=== PATIENT | female | born 1965 | race American Indian/Alaskan Native ===

== ENCOUNTER 2016-07-30 15:50 | Emergency (ER) | payer OTHER ==
--- NOTE | 2016-07-30 16:07 | PDOC ---
History of Present Illness - General History Source: Patient, Old Records Exam Limitations: No Limitations - History of Present Illness Initial Comments: 07/30/16 16:52 The patient is a 50 year old female with a significant past medical history of recurrent left chest and arm pain (normal cardiac catheterization 3 years ago), who present to the emergency with chest pain, high blood pressure (baseline 100/ 60 today at work was 140/90), and blurred vision. The patient notes that she has had this chest pain in the past which led to her cardiac catheterization. The patient stated that she was at work today when during onset of symptoms. The patient describes her pain as achy and sharp, she states that her pain begins in her left upper neck and radiates down to the left elbow, occasionally extending through the hand. The patient notes she is experiencing associated lightheadedness, shakes. The patient presents for further evaluation and treatment. <Michel Boss - Last Filed: 07/30/16 17:35> <Harris Wu - Last Filed: 07/30/16 17:55> - General Chief Complaint: Blood Pressure Problem Stated Complaint: HIGH BLOOD PRESSURE Time Seen by Provider: 07/30/16 16:05 Past History <Michel Boss - Last Filed: 07/30/16 17:35> - Past Medical History Suicide Attempt (Hx): No - Psycho/Social/Smoking Cessation Hx Anxiety: No Suicidal Ideation: No Smoking History: Never smoked Have you smoked in the past 12 months: No Hx Alcohol Use: No Drug/Substance Use Hx: No Substance Use Type: None <Harris Wu - Last Filed: 07/30/16 17:55> - Past Medical History Allergies/Adverse Reactions: Allergies Allergy/AdvReac Type Severity Reaction Status Date / Time No Known Allergies Allergy Verified 01/10/16 12:36 Home Medications: Ambulatory Orders NK [No Known Home Medication] 07/30/16 Review of Systems - Review of Systems Able to Perform ROS?: Yes Comments:: 07/30/16 16:59 CONSTITUTIONAL: Absent: Fever, Chills, Diaphoresis, Generalized Weakness, Malaise, Loss of Appetite HEENT: Present: Blurred vision Absent: Rhinorrhea, Nasal Congestion, Throat Pain, Throat Swelling, Difficulty Swallowing, Mouth Swelling, Ear Pain. CARDIOVASCULAR: Present: Chest Pain Absent: Syncope, Palpitations, Irregular Heart Rate, Lightheadedness, Peripheral Edema RESPIRATORY: Absent: Cough, Shortness of Breath, SOB with Exertion, Orthopnea, Wheezing, Stridor, Hemoptysis GASTROINTESTINAL: Absent: Abdominal pain, Abdominal Distension, Nausea, Vomiting, Diarrhea, Constipation, Melena, Hematochezia GENITOURINARY: Absent: Dysuria, Frequency, Urgency, Hesitancy, Flank Pain, Genital Pain MUSCULOSKELETAL: Present: Neck pain. Absent: Arthralgia, Joint Swelling, Back pain SKIN: Absent: Rash, Itching, Pallor HEMATOLOGIC/IMMUNOLOGIC: Absent: Easy Bleeding, Easy Bruising, Lymphadenopathy, Frequent infections ENDOCRINE: Absent: Unexplained Weight Gain, Unexplained Weight Loss, Heat Intolerance, Cold Intolerance NEUROLOGIC: Present: Head Pressure, Lightheadedness Absent: Focal Weakness, Paresthesias, Vertigo, Unsteady Gait, Seizure, Mental Status Changes, Incontinence PSYCHIATRIC: Absent: Anxiety, Depression <Michel Boss - Last Filed: 07/30/16 17:35> *Physical Exam - Physical Exam Comments: 07/30/16 17:36 GENERAL: The patient is awake, alert, and fully oriented, in no acute distress. HEAD: Normal with no signs of trauma. EYES: Pupils equal, round and reactive to light, extraocular movements intact, sclera anicteric, conjunctiva clear. 20/30 visual acuity bilaterally eyes without glasses ENT: Ears normal, nares patent, oropharynx clear without exudates. Moist mucous membranes. NECK: Normal range of motion, supple without lymphadenopathy, JVD, or masses. LUNGS: Breath sounds equal, clear to auscultation bilaterally. No wheezes, and no crackles. HEART: Regular rate and rhythm, normal S1 and S2 without murmur, rub or gallop. ABDOMEN: Soft, nontender, normoactive bowel sounds. No guarding, no rebound. No masses. EXTREMITIES: Normal range of motion, no edema. No clubbing or cyanosis. No cords , erythema, or tenderness. PSYCH: Normal mood, normal affect. SKIN: Warm, Dry, normal turgor, no rashes or lesions noted. NEURO: Mental status: The patient is oriented x3. Cranial nerves: Cranial nerves II through XII are intact Motor: The upper extremities are 5 over 5 in all muscle groups. The lower extremities are 5 over 5 in all muscle groups. Sensation: Sensation is intact to light touch throughout. Cerebellar: Xcasho-radxip-agjs is normal in both upper extremities. Heel-knee- walton is normal in both lower extremities. Reflexes: 2+ and symmetric in the upper and lower extremities. Gait: Normal. Heel and toe walking are normal. Tandem gait is normal. <Michel Boss - Last Filed: 07/30/16 17:35> Heart Score/ECG Review - ECG Impressions Comment:: 07/30/16 17:19 Twelve-lead EKG was performed and reviewed by me. There is [normal sinus rhythm ] at a rate of [73] beats per minute. The axis is [normal]. The intervals are normal. There are no abnormal Q waves. There are no abnormal ST elevations or depressions. There are no significant T wave abnormalities. Impression: Normal twelve-lead EKG. <Michel Boss - Last Filed: 07/30/16 17:35> - History History: Slightly suspicious - Electrocardiogram EKG: Normal - Age Age: 45-65 - Risk Factors Risk Factors Heart Score: Yes Hx Hypertension, Yes Positive family hx of cardiac disease Based on the list above the patient has:: 1-2 risk factors - Troponin Troponin: </= normal limit - Score Heart Score - Total: 2 (low risk) <Harris Wu - Last Filed: 07/30/16 17:55> ED Treatment Course - LABORATORY CBC & Chemistry Diagram: 07/30/16 16:55 07/30/16 16:55 <Michel Boss - Last Filed: 07/30/16 17:35> - LABORATORY CBC & Chemistry Diagram: 07/30/16 16:55 07/30/16 16:55 <Harris Wu - Last Filed: 07/30/16 17:55> Medical Decision Making - Medical Decision Making 07/30/16 17:47 Patient is a 50-year-old woman who presents with nonspecific symptoms today. She has a prior history of hypertension and a family history of heart disease. She was at work today and she states her vision felt slightly blurry. She had no associated symptoms of dizziness, unsteadiness, difficulty speaking or swallowing, double vision, or any other neurological symptoms. She became a little bit concerned and went to the nurse who noted that her blood pressure was elevated to 140/90 when it normally runs 100/60. She also noted some chest discomfort. Of note, she has a history of recurrent chest discomfort over the last several years. She underwent cardiac catheterization 2 years ago which was unremarkable. She was not started on aspirin or any other medications. Her chest pain today is similar to the previous chest pains she's been having intermittently over the last several years. It is sharp, on the left side, intermittent, and it goes down the arm. The physical examination was normal, including a detailed neurological examination. The EKG was normal. The heart risk score puts the patient in the low risk category. Impression: Nonspecific chest pain and vague visual change. No signs of stroke. No signs of acute coronary syndrome given normal EKG and enzymes and low heart risk score. Patient advised to follow-up with her primary care physician in a timely fashion. A copy of labs and EKG given to the patient for follow-up. The scribe's documentation has been prepared under my direction and personally reviewed by me in its entirety. I have confirmed that the note above accurately reflects all work, treatment, procedures, and medical decision- making performed by me. <Harris Wu - Last Filed: 07/30/16 17:55> *DC/Admit/Observation/Transfer - Attestations Scribe Attestion: 07/30/16 17:01 Documentation prepared by Michel Boss, acting as medical radiation tech for Harris Wu MD. <Michel Boss - Last Filed: 07/30/16 17:35> - Discharge Dispostion Admit: No <Harris Wu - Last Filed: 07/30/16 17:55> Diagnosis at time of Disposition: Blurry vision, bilateral - Discharge Dispostion Disposition: HOME Condition at time of disposition: Improved - Referrals Referrals: Matt Carroll MD [Staff Physician] - - Patient Instructions Additional Instructions: Today you were evaluated for some blurry vision and some chest discomfort. The physical examination and laboratory tests along with the EKG were all normal. It is advised that you follow up in a timely fashion with your primary care physician and bring a copy of your results with you to your appointment. Should you develop severe or progressive symptoms, it is advised that you return to the emergency department.
[2016-07-30 17:10] VITALS: BP 99/55; PULSE 72; TEMP 97.9; BMI 31.9
[2016-07-30 17:17] LABS: BASOPHIL 0.7 % (0-2.0); EOSINOPHIL 5.7 % (0-4.5); MCH 23.7 pg (25.7-33.7); MCHC 32.2 g/dl (32.0-36.0); MEAN CELL VOLUME 73.6 fl (80-96); MEAN PLT VOLUME 8.4 fl (7.5-11.1); NEUTROPHILS 58.2 % (42.8-82.8); PLATELET COUNT 250 K/MM3 (134-434); RDW 13.2 % (11.6-15.6); WHITE BLOOD COUNT 8.4 K/mm3 (4.0-10.0)
[2016-07-30 17:30] LABS: ALBUMIN 3.8 g/dl (3.5-5.0); ALK PHOS 71 U/L (32-92); ANION GAP 8 (8-16); BILIRUBIN,TOTAL 0.4 mg/dl (0.2-1.0); CO2 29 mmol/L (22-28); CPK(DFH) 108 IU/L (26-140); CREATININE 0.7 mg/dl (0.6-1.3); GLUCOSE,RANDOM 100 mg/dl (74-106); SGOT/AST 25 U/L (10-42); SGPT/ALT 20 U/L (10-40); TOT PROT 6.6 g/dl (6.4-8.3)
[2016-07-30 17:36] LABS: TROPONIN I (DFP) < 0.03 ng/ml (0.03-0.50)
--- NOTE | 2016-07-31 16:23 | EKG ---
Test Reason : Blood Pressure : / mmHG Vent. Rate : 076 BPM Atrial Rate : 076 BPM P-R Int : 136 ms QRS Dur : 084 ms QT Int : 384 ms P-R-T Axes : 072 059 033 degrees QTc Int : 432 ms NORMAL SINUS RHYTHM CANNOT RULE OUT ANTERIOR INFARCT , AGE UNDETERMINED ABNORMAL ECG NO PREVIOUS ECGS AVAILABLE Confirmed by ERASMO BRADEN MD ([id number]) on 07/31/2016 4:22:39 PM Referred By: MD TOLEDO Confirmed By:ERASMO BRADEN MD
== END 2016-07-30 17:59 | disposition home or self-care (01) ==
LOC: FER 15:50
DX: H53.8 Other visual disturbances (principal)
CPT/HCPCS: 36415; 80053; 82550; 84484; 85025; 93005; 99283-25

== ENCOUNTER 2016-09-18 15:55 | Emergency (ER) | payer OTHER ==
--- NOTE | 2016-09-18 15:59 | PDOC ---
History of Present Illness <Jayy Diaz - Last Filed: 09/18/16 16:15> - General History Source: Patient Exam Limitations: No Limitations - History of Present Illness Initial Comments: 09/18/16 16:19 The patient is a 51 year old female with no significant past medical history, presenting to the Emergency Department with left eye swelling and pain since Tuesday. She reports that on Tuesday she noticed some swelling and discomfort at her upper left eyelid and assumed she had a stye. She states that she had her eye examined by her friend who stretched her eyelid, causing pain. She admits that since then her eye has become more painful and more swollen. She also admits to some discharge in the eye and crusting around the eye in the morning. She denies any visual changes. The patient denies blurry vision, or double vision. Patient denies nausea, vomiting, and diarrhea. Patient denies headache, or dizziness. <Jenny Crespo - Last Filed: 09/18/16 16:22> - General Chief Complaint: Eye Problem Stated Complaint: LEFT EYE SWELLING Time Seen by Provider: 09/18/16 15:58 Past History - Past Medical History HTN: Yes Suicide Attempt (Hx): No - Psycho/Social/Smoking Cessation Hx Anxiety: No Suicidal Ideation: No Smoking History: Never smoked Have you smoked in the past 12 months: No Hx Alcohol Use: No Drug/Substance Use Hx: No Substance Use Type: None <Jayy Diaz - Last Filed: 09/18/16 16:15> <Jenny Crespo - Last Filed: 09/18/16 16:22> - Past Medical History Allergies/Adverse Reactions: Allergies Allergy/AdvReac Type Severity Reaction Status Date / Time No Known Allergies Allergy Verified 01/10/16 12:36 Home Medications: Ambulatory Orders Cephalexin Monohydrate [Keflex] 500 mg PO Q8H #21 capsule 09/18/16 Review of Systems - Review of Systems Able to Perform ROS?: Yes Comments:: 09/18/16 16:19 CONSTITUTIONAL: Absent: fever, no chills, no fatigue EYES: Present: + left eyelid swelling and pain Absent: visual changes ENT: Absent: ear pain, no sore throat CARDIOVASCULAR: Absent: chest pain, no palpitations MUSCULOSKELETAL: Absent: back pain, no arthralgia, no myalgia SKIN: Absent: rash <Jenny Crespo - Last Filed: 09/18/16 16:22> *Physical Exam - Vital Signs Last Vital Signs Temp Pulse Resp BP Pulse Ox 98.6 F 86 18 126/72 99 09/18/16 15:55 09/18/16 15:55 09/18/16 15:55 09/18/16 15:55 09/18/16 15:55 - Physical Exam Comments: 09/18/16 16:20 GENERAL: Well-appearing, well-nourished. No apparent distress. HEENT: Swelling to the left upper eyelid, proximal to the eyelash, slight erythema warmth and tenderness. Mild left periorbital edema. Normocephalic, atraumatic. PERRL, EOM intact. No pain with extraocular movements. CARDIOVASCULAR: Normal S1, S2. Regular rate and rhythm. EXTREMITIES: Normal ROM in all four extremities. No gross deformities. SKIN: Swelling and warmth to left upper eyelid. Warm, dry. No rash NEUROLOGICAL: No focal neurological deficits. <Jenny Crespo - Last Filed: 09/18/16 16:22> Medical Decision Making - Medical Decision Making 09/18/16 16:16 The patient is well-appearing and in no acute distress There is evidence of hordeolum with mild/early surrounding cellulitis There is no evidence of orbital cellulitis Clinical impression: Hordeolum Mild/early preseptal cellulitis I discussed the physical exam findings, ancillary test results and final diagnoses with the patient. I answered all of the patient's questions. The patient was satisfied with the care received and felt comfortable with the discharge plan and treatment plan. The patient will call their primary care physician within 24 hours to arrange follow-up and will return to the Emergency Department with any new, persistent or worsening symptoms. A portion of this note was documented by scribe services under my direction. I have reviewed the details of the note, within reason, and agree with the documentation with the following case summary and management plan written by me. <Jayy Diaz - Last Filed: 09/18/16 16:15> *DC/Admit/Observation/Transfer <Jayy Diaz - Last Filed: 09/18/16 16:15> - Attestations Scribe Attestion: 09/18/16 16:22 Documentation prepared by Jenny Crespo, acting as biomedical engineering director for Jayy Diaz MD. <Jenny Crespo - Last Filed: 09/18/16 16:22> Diagnosis at time of Disposition: Hordeolum externum left upper eyelid, Cellulitis, face - Discharge Dispostion Disposition: HOME Condition at time of disposition: Improved - Prescriptions Prescriptions: Cephalexin Monohydrate [Keflex] 500 mg PO Q8H #21 capsule - Patient Instructions Printed Discharge Instructions: DI for Hordeolum, DI for Cellulitis -- Adult Additional Instructions: Return to the emergency department immediately with ANY new, persistent or worsening symptoms. You MUST call and follow up with your doctor tomorrow. Please make sure your doctor reviews the results of your emergency department evaluation. Take the antibiotics we prescribed. Apply warm compresses to your closed left eye, for 15 minutes, 5 times per day, for one week. - Post Discharge Activity Work/School Note: Back to Work
[2016-09-18 16:02] VITALS: BP 126/72; PULSE 86; TEMP 98.6; BMI 30.9
--- NOTE | 2016-09-18 19:38 | PDOC ---
*Physical Exam - Vital Signs Last Vital Signs Temp Pulse Resp BP Pulse Ox 98.6 F 86 18 126/72 99 09/18/16 15:55 09/18/16 15:55 09/18/16 15:55 09/18/16 15:55 09/18/16 15:55 *DC/Admit/Observation/Transfer Diagnosis at time of Disposition: Hordeolum externum left upper eyelid, Cellulitis, face - Discharge Dispostion Disposition: HOME Condition at time of disposition: Improved - Prescriptions Prescriptions: Cephalexin Monohydrate [Keflex] 500 mg PO Q8H #21 capsule - Referrals - Patient Instructions Printed Discharge Instructions: DI for Cellulitis -- Adult, DI for Hordeolum Additional Instructions: Return to the emergency department immediately with ANY new, persistent or worsening symptoms. You MUST call and follow up with your doctor tomorrow. Please make sure your doctor reviews the results of your emergency department evaluation. Take the antibiotics we prescribed. Apply warm compresses to your closed left eye, for 15 minutes, 5 times per day, for one week. - Post Discharge Activity Work/School Note: Back to Work
== END 2016-09-18 17:04 | disposition home or self-care (01) ==
LOC: FER 15:55
DX: H00.014 Hordeolum externum left upper eyelid (principal); L03.211 Cellulitis of face; I10 Essential (primary) hypertension
CPT/HCPCS: 99283-25

== ENCOUNTER 2016-10-25 17:14 | Observation (INO) | payer OTHER ==
[2016-10-25 17:20] VITALS: BMI 31.7
[2016-10-25] MEDS ORDERED: NITROGLYCERIN SUBLINGUAL 1/150 0.4 MG TAB SL ONE (17:39)
[2016-10-25] MEDS ORDERED: ASPIRIN 81 MG CHEWABLE TABLETS PO ONE (17:39)
--- NOTE | 2016-10-25 17:43 | PDOC ---
History of Present Illness - General History Source: Patient Exam Limitations: No Limitations - History of Present Illness Initial Comments: 10/25/16 17:49 The patient is a 51 year old female with no significant past medical history, who presents to the ED with sharp constant chest pain radiating to her left neck and left arm. Patient states the pain began at 1 PM, and is now worsening. Patient describes the pain as 8/10 in severity. Patient denies taking any medication to alleviate her pain. Patient states she is concerned due to family cardiac issues. Her two brothers had heart attacks in the recent past. She states she had a negative stress test done last year. She denies SOB, fever, chills, nausea, vomiting, diarrhea. She denies recent travels, sick contacts. <Clarence Davis - Last Filed: 10/25/16 17:49> - General History Source: Patient Exam Limitations: No Limitations <Evangelista Le - Last Filed: 10/25/16 18:52> - General Chief Complaint: Chest Pain Stated Complaint: chest pain Time Seen by Provider: 10/25/16 17:19 Past History <Clarence Davis - Last Filed: 10/25/16 17:49> - Past Medical History HTN: Yes Suicide Attempt (Hx): No Other medical history: pt denies - Psycho/Social/Smoking Cessation Hx Anxiety: No Suicidal Ideation: No Smoking History: Never smoked Have you smoked in the past 12 months: No Information on smoking cessation initiated: No Hx Alcohol Use: No Drug/Substance Use Hx: No Substance Use Type: None <Evangelista Le - Last Filed: 10/25/16 18:52> - Past Medical History Allergies/Adverse Reactions: Allergies Allergy/AdvReac Type Severity Reaction Status Date / Time No Known Allergies Allergy Verified 10/25/16 17:17 Home Medications: Ambulatory Orders NK [No Known Home Medication] 10/25/16 Review of Systems - Review of Systems Able to Perform ROS?: Yes Comments:: 10/25/16 17:49 GENERAL/CONSTITUTIONAL: No fever or chills. No weakness. HEAD, EYES, EARS, NOSE AND THROAT: No change in vision. No ear pain or discharge. No sore throat. CARDIOVASCULAR: + left sided chest pain radiating to the left arm and left side of neck. No shortness of breath. RESPIRATORY: No cough, wheezing, or hemoptysis. GASTROINTESTINAL: No nausea, vomiting, diarrhea or constipation. GENITOURINARY: No dysuria, frequency, or change in urination. MUSCULOSKELETAL: No joint or muscle swelling or pain. No neck or back pain. SKIN: No rash NEUROLOGIC: No headache, vertigo, loss of consciousness, or change in strength/ sensation. ENDOCRINE: No increased thirst. No abnormal weight change. HEMATOLOGIC/LYMPHATIC: No anemia, easy bleeding, or history of blood clots. ALLERGIC/IMMUNOLOGIC: No hives or skin allergy. <Clarence Davis - Last Filed: 10/25/16 17:49> *Physical Exam - Vital Signs Last Vital Signs Temp Pulse Resp BP Pulse Ox 98 F 98 H 18 132/74 100 10/25/16 17:15 10/25/16 17:15 10/25/16 17:15 10/25/16 17:15 10/25/16 17:15 - Physical Exam Comments: 10/25/16 17:50 GENERAL: Awake, alert, and fully oriented, in no acute distress HEAD: No signs of trauma EYES: PERRLA, EOMI, sclera anicteric, conjunctiva clear ENT: Auricles normal inspection, hearing grossly normal, nares patent, oropharynx clear without exudates. Moist mucosa NECK: Normal ROM, supple, no lymphadenopathy, JVD, or masses LUNGS: Breath sounds equal, clear to auscultation bilaterally. No wheezes, and no crackles HEART: Regular rate and rhythm, normal S1 and S2, no murmurs, rubs or gallops ABDOMEN: Soft, nontender, normoactive bowel sounds. No guarding, no rebound. No masses EXTREMITIES: Normal range of motion, no edema. No clubbing or cyanosis. No cords, erythema, or tenderness NEUROLOGICAL: Cranial nerves II through XII grossly intact. Normal speech, normal gait SKIN: Warm, Dry, normal turgor, no rashes or lesions noted. <Clarence Davis - Last Filed: 10/25/16 17:49> - Vital Signs Last Vital Signs Temp Pulse Resp BP Pulse Ox 98 F 98 H 18 132/74 100 10/25/16 17:15 10/25/16 17:15 10/25/16 17:15 10/25/16 17:15 10/25/16 17:15 <Park,Evangelista - Last Filed: 10/25/16 18:52> Heart Score/ECG Review - History History: Slightly suspicious - Electrocardiogram EKG: Normal - Age Age: 45-65 - Risk Factors Risk Factors Heart Score: Yes Positive family hx of cardiac disease Based on the list above the patient has:: 1-2 risk factors - Troponin Troponin: </= normal limit - Score Heart Score - Total: 2 #1 ECG reviewed & interpreted by me at: 17:30 10/25/16 17:43 A portion of this note was documented by scribe services under my direction. I have reviewed the details of the note, within reason, and agree with the documentation with the following case summary and management plan written by me. Patient treated in the ED. Nursing notes are reviewed and incorporated into the medical decision-making. Vital signs reviewed. Peripheral IV access obtained by the nurse, laboratory studies are drawn and sent, reviewed and interpreted by myself. Vital Signs Temp Pulse Resp BP Pulse Ox 98 F 98 H 18 132/74 100 10/25/16 17:15 10/25/16 17:15 10/25/16 17:15 10/25/16 17:15 10/25/16 17:15 NSR 87, no std/isidra, TWI III, normal axis, normal intervals, QTC 423 msec <Evangelista Le - Last Filed: 10/25/16 18:52> ED Treatment Course - LABORATORY CBC & Chemistry Diagram: 10/25/16 17:55 10/25/16 17:55 <Evangelista Le - Last Filed: 10/25/16 18:52> Medical Decision Making - Medical Decision Making 10/25/16 18:50 A portion of this note was documented by scribe services under my direction. I have reviewed the details of the note, within reason, and agree with the documentation with the following case summary and management plan written by me. Patient treated in the ED. Nursing notes are reviewed and incorporated into the medical decision-making. Vital signs reviewed. Peripheral IV access obtained by the nurse, laboratory studies are drawn and sent, reviewed and interpreted by myself. 51-year-old female with no past medical history presents with sharp chest pain radiating to her left neck and left arm. Patient reports that the symptoms occurred at 1 PM when she was showering. She had noted that her symptoms were worsening and were initially intermittent now persistent. She denies shortness of breath. States she is not taking any medications. Patient states that she had an unusual type of chest pain presentation that was electric in nature where she was admitted 3 years ago that led to a cardiac catheterization. That was negative. The patient is concerned because she has strong family history of myocardial infarctions. Both her brothers had MIs. One brother was in her 40s and the other brother was in the 50s. Given the symptoms and family history, we'll need to rule out CO. We'll trial aspirin and nitroglycerin. Chest x-ray, labs including troponin. We'll need to consider possible admission for CO workup. 10/25/16 18:50 Pt's chest pain improved with 8 to 2 with nitroglycerin. CBC, BMP 10/25/16 17:55 04 17:55 CMP Sodium 137 mmol/L (136-145) 10/25/16 17:55 Potassium 3.6 mmol/L (3.5-5.1) 10/25/16 17:55 Chloride 103 mmol/L (98-107) 10/25/16 17:55 Carbon Dioxide 28 mmol/L (22-28) 10/25/16 17:55 Anion Gap 6 (8-16) L 10/25/16 17:55 BUN 14 mg/dl (7-18) D 10/25/16 17:55 Creatinine 0.9 mg/dl (0.6-1.3) D 10/25/16 17:55 Creat Clearance w eGFR > 60 (>60) 10/25/16 17:55 Random Glucose 120 mg/dl (74-106) H 10/25/16 17:55 Calcium 8.7 mg/dl (8.4-10.2) 10/25/16 17:55 Total Bilirubin < 0.3 mg/dl (0.2-1.0) D 10/25/16 17:55 AST 20 U/L (10-42) 10/25/16 17:55 ALT 19 U/L (10-40) 10/25/16 17:55 Alkaline Phosphatase 70 U/L (32-92) 10/25/16 17:55 Creatine Kinase 110 IU/L (26-140) 10/25/16 17:55 Troponin I < 0.03 ng/ml (0.03-0.50) L 10/25/16 17:55 Total Protein 6.6 g/dl (6.4-8.3) 10/25/16 17:55 Albumin 3.8 g/dl (3.5-5.0) 04 17:55 Patient needs to be admitted. Case discussed with DR. Staley. She accepts to telemetry observation. Case discussed in detail with admitting physician including history, physical exam and ancillary studies. Admitting physician has assumed care for the patient, will follow all pending diagnostics and will complete the evaluation and treatment. <Evangelista Le - Last Filed: 10/25/16 18:52> *DC/Admit/Observation/Transfer - Attestations Scribe Attestion: 10/25/16 17:50 Documentation prepared by Clarence Davis, acting as certified medical transcriptionist for Evangelista Le MD, MD. <Clarence Davis - Last Filed: 10/25/16 17:49> - Discharge Dispostion Admit: Yes <Evangelista Le - Last Filed: 10/25/16 18:52> Diagnosis at time of Disposition: Chest pain Qualifiers: Chest pain type: unspecified Qualified Code(s): R07.9 - Chest pain, unspecified - Discharge Dispostion Condition at time of disposition: Stable
[2016-10-25] MEDS ORDERED: ASPIRIN 81 MG CHEWABLE TABLETS ONE (18:01)
[2016-10-25] MEDS ORDERED: NITROGLYCERIN SUBLINGUAL 1/150 0.4 MG TAB ONE (18:02)
[2016-10-25 18:05] LABS: BASOPHIL 0.7 % (0-2.0); EOSINOPHIL 4.4 % (0-4.5); MCH 25.5 pg (25.7-33.7); MCHC 33.5 g/dl (32.0-36.0); MEAN CELL VOLUME 76.3 fl (80-96); MEAN PLT VOLUME 8.4 fl (7.5-11.1); NEUTROPHILS 62.7 % (42.8-82.8); PLATELET COUNT 254 K/MM3 (134-434); RDW 13.9 % (11.6-15.6); WHITE BLOOD COUNT 8.1 K/mm3 (4.0-10.0)
[2016-10-25 18:22] LABS: ALBUMIN 3.8 g/dl (3.5-5.0); ALK PHOS 70 U/L (32-92); ANION GAP 6 (8-16); CALCIUM 8.7 mg/dl (8.4-10.2); CO2 28 mmol/L (22-28); CPK(DFH) 110 IU/L (26-140); CREATININE 0.9 mg/dl (0.6-1.3); GLUCOSE,RANDOM 120 mg/dl (74-106); SGOT/AST 20 U/L (10-42); SGPT/ALT 19 U/L (10-40); TOT PROT 6.6 g/dl (6.4-8.3)
[2016-10-25 18:31] LABS: PH,URINE 5.5 (4.5-8); URINE APPEARANCE Clear; URINE BILIRUBIN Negative (NEGATIVE); URINE BLOOD Negative (NEGATIVE); URINE GLUCOSE (UA) Negative (NEGATIVE); URINE KETONE Negative (NEGATIVE); URINE LEUK ESTERASE Negative (NEGATIVE); URINE NITRITE Negative (NEGATIVE); URINE PROTEIN Negative (NEGATIVE); URINE UROBILINOGEN 0.2 E.U/dl (0.2-1.0)
[2016-10-25 18:32] LABS: URINE COLOR YELLOW
[2016-10-25 18:39] LABS: BILIRUBIN,TOTAL < 0.3 mg/dl (0.2-1.0)
[2016-10-25 18:48] LABS: TROPONIN I (DFP) < 0.03 ng/ml (0.03-0.50)
--- NOTE | 2016-10-25 20:10 | HP ---
Admitting History and Physical - Primary Care Physician PCP: Antoni Staley - Admission History of Present Illness: 51 year old female with no significant past medical history, who presents to the ED with sharp constant chest pain radiating to her left neck and left arm. Patient states the pain began at 1 PM, and is now worsening. Patient describes the pain as 8/10 in severity. Patient denies taking any medication to alleviate her pain. Patient states she is concerned due to family cardiac issues. Her two brothers had heart attacks in the recent past. She states she had a negative stress test done last year. She denies SOB, fever, chills, nausea, vomiting, diarrhea. - Past Medical History ...LMP: 01/06/16 - Smoking History Smoking history: Never smoked Have you smoked in the past 12 months: No - Alcohol/Substance Use Hx Alcohol Use: No Home Medications - Allergies Allergies/Adverse Reactions: Allergies Allergy/AdvReac Type Severity Reaction Status Date / Time No Known Allergies Allergy Verified 10/25/16 17:17 - Home Medications Home Medications: Ambulatory Orders NK [No Known Home Medication] 10/25/16 Family Disease History - Family Disease History Family History: Unable to Obtain (disease) Family Disease History: Heart Disease: Brother Review of Systems - Review of Systems Cardiovascular: reports: Chest Pain Physical Examination Vital Signs: Vital Signs Temperature 98 F 10/25/16 17:15 Pulse Rate 88 10/25/16 19:38 Respiratory Rate 16 10/25/16 19:38 Blood Pressure 112/74 10/25/16 19:38 O2 Sat by Pulse Oximetry (%) 98 10/25/16 18:53 Constitutional: Yes: No Distress HENT: Yes: Atraumatic Neck: Yes: Supple Cardiovascular: Yes: Regular Rate and Rhythm Respiratory: Yes: CTA Bilaterally Gastrointestinal: Yes: Normal Bowel Sounds Extremities: Yes: WNL Neurological: Yes: Alert, Oriented Problem List - Problems (1) Chest pain Assessment/Plan: tele observation serial cardiac enzymes cardiology consult Code(s): R07.9 - CHEST PAIN, UNSPECIFIED Qualifiers: Chest pain type: unspecified Qualified Code(s): R07.9 - Chest pain, unspecified
[2016-10-25] MEDS ORDERED: ACETAMINOPHEN 325 MG TABLET (FP) PO PRN (20:15)
[2016-10-26] MEDS ORDERED: MAG HYDROX/AL HYDROX/SIMETH 30 ML UNIT-DOSE CUP PO ONE ×2 (01:11→14:00)
[2016-10-26] MEDS ORDERED: NITROGLYCERIN 2% OINTMENT - 1GM PACKET TD ONE (01:11)
[2016-10-26] MEDS ORDERED: IBUPROFEN 600 MG TABLET (FP) PO ONE (01:11)
--- NOTE | 2016-10-26 01:13 | ED.PROV ---
Physicial Exam Called to floor to evaluate this 51-year-old female for chest pain. Patient's complaining of acute onset of sharp chest pain. Patient's pain is worse with aspiration, worse with movement and reproducible on palpation. On exam patient's pain is reproducible on palpation, her lungs are clear, heart is regular rate and rhythm. Patient is no acute distress. Review of EKG done at time of my evaluation shows normal sinus rhythm, no acute ST-T wave changes normal EKG. Assessment and plan: This is a 51-year-old female with multiple cardiac risk factors and she acute onset of sharp chest pain. Pain appears to be more pleuritic or muscular in nature. Orders for ibuprofen with Maalox and a half inch of nitro paste. - Vital Signs Last Vital Signs Temp Pulse Resp BP Pulse Ox 99.6 F 83 18 121/70 100 10/25/16 20:33 10/25/16 20:33 10/25/16 20:33 10/25/16 20:33 10/25/16 20:33
[2016-10-26 02:17] LABS: TROPONIN I < 0.02 ng/ml (0.00-0.05)
--- NOTE | 2016-10-26 13:43 | EKG ---
Test Reason : Blood Pressure : / mmHG Vent. Rate : 087 BPM Atrial Rate : 087 BPM P-R Int : 140 ms QRS Dur : 080 ms QT Int : 352 ms P-R-T Axes : 072 065 029 degrees QTc Int : 423 ms NORMAL SINUS RHYTHM NON DIAGNOSTIC INFERIOR Q WAVES NOTED ABNORMAL ECG WHEN COMPARED WITH ECG OF 30-JUL-2016 15:56, NO SIGNIFICANT CHANGE WAS FOUND Confirmed by JENS HALL, LOURDES ([id number]) on 10/26/2016 1:43:22 PM Referred By: MAURILIO Confirmed By:LOURDES COLINDRES MD
[2016-10-26 14:00] LABS: TROPONIN I (DFP) < 0.03 ng/ml (0.03-0.50)
[2016-10-26] MEDS ORDERED: PANTOPRAZOLE 40 MG TABLET (FP) PO ONE (14:00)
[2016-10-26 14:20] VITALS: BP 101/42; PULSE 79; TEMP 98.1
[2016-10-26 14:24] LABS: CPK(DFH) 89 IU/L (26-140)
--- NOTE | 2016-10-26 15:06 | DS ---
Physical Examination Vital Signs: Vital Signs Temperature 98.1 F 10/26/16 14:18 Pulse Rate 79 10/26/16 14:18 Respiratory Rate 16 10/26/16 14:18 Blood Pressure 101/42 10/26/16 14:18 O2 Sat by Pulse Oximetry (%) 99 10/26/16 14:18 Constitutional: Yes: No Distress HENT: Yes: Atraumatic Neck: Yes: Supple Cardiovascular: Yes: Regular Rate and Rhythm Respiratory: Yes: CTA Bilaterally Gastrointestinal: Yes: Normal Bowel Sounds Extremities: Yes: WNL Neurological: Yes: Alert, Oriented Discharge Summary Reason For Visit: CHEST PAIN Current Active Problems Chest pain (Acute) Condition: Stable - Home Medications Comprehensive Discharge Medication List: Ambulatory Orders NK [No Known Home Medication] 10/25/16
--- NOTE | 2016-10-26 16:04 | PN ---
Progress Note, Physician History of Present Illness: NO MORE CHEST PAIN - Current Medication List Current Medications: Active Medications Acetaminophen (Tylenol -) 650 mg PO Q6H PRN PRN Reason: FEVER OR PAIN - Objective Vital Signs: Vital Signs Temperature 98.1 F 10/26/16 14:18 Pulse Rate 79 10/26/16 14:18 Respiratory Rate 16 10/26/16 14:18 Blood Pressure 101/42 10/26/16 14:18 O2 Sat by Pulse Oximetry (%) 99 10/26/16 14:18 Constitutional: Yes: No Distress HENT: Yes: Atraumatic Neck: Yes: Supple Cardiovascular: Yes: Regular Rate and Rhythm Respiratory: Yes: CTA Bilaterally Gastrointestinal: Yes: Normal Bowel Sounds Extremities: Yes: WNL Neurological: Yes: Alert, Oriented Problem List - Problems (1) Chest pain Assessment/Plan: tele observation serial cardiac enzymes cardiology consult WILL START ASPIRIN ECHO DONE AND REVIEWED Code(s): R07.9 - CHEST PAIN, UNSPECIFIED Qualifiers: Chest pain type: unspecified Qualified Code(s): R07.9 - Chest pain, unspecified
[2016-10-26] MEDS ORDERED: ASPIRIN 81 MG CHEWABLE TABLETS PO SCH (16:15)
--- NOTE | 2016-10-26 17:51 | CON.CARD ---
Cardiology Consult (text) - Consultation Consultation Note: cc: cp hpi: 51 f no sig pmhx here with cp. Over past few years pt has been having intermittent atypical cp. Occurs at rest or with exertion. It is a mild pressure in left upper chest with feeling of little pins poking the area. No radiation. No associated sxs. No sob, palps, dizzy, loc, pnd, orthopnea, le edema. Over past day this chronic pain came back and persisted so came to ER. No hx hrt dz. Had same cp 2013 with non obs cad on cath then per pt. pmh: per hpi psh: nc social: no tob fam: brothers with VT's 48, 55, no scd ros: per hpi; no nvd, fever, cough, nasal congestion, vee, vision changes, muscle pains, gib meds: Home Medications Medication Instructions Recorded NK [No Known Home Medication] 10/25/16 pe: Vital Signs Period Temp Pulse Resp BP Sys/Stoner Pulse Ox Last 24 Hr 98.1 F-99.6 F 64-100 16-18 96-121/42-74 98-100 nad no jvd rrr s1s2 no mrg cta bl nl eff aaox3 no le e/c/c abd nt nd pos bs no jaundice diaphoresis pos dp pt, no carotid bruits Laboratory Last Values WBC 8.1 K/mm3 (4.0-10.0) 10/25/16 17:55 RBC 4.70 M/mm3 (3.60-5.2) 10/25/16 17:55 Hgb 12.0 GM/dl (10.7-15.3) D 10/25/16 17:55 Hct 35.9 % (32.4-45.2) 10/25/16 17:55 MCV 76.3 fl (80-96) L 10/25/16 17:55 MCHC 33.5 g/dl (32.0-36.0) 10/25/16 17:55 RDW 13.9 % (11.6-15.6) 10/25/16 17:55 Plt Count 254 K/MM3 (134-434) 10/25/16 17:55 MPV 8.4 fl (7.5-11.1) 10/25/16 17:55 Neutrophils % 62.7 % (42.8-82.8) 10/25/16 17:55 Lymphocytes % 27.8 % (8-40) 10/25/16 17:55 Monocytes % 4.4 % (3.8-10.2) 10/25/16 17:55 Eosinophils % 4.4 % (0-4.5) 10/25/16 17:55 Basophils % 0.7 % (0-2.0) 10/25/16 17:55 Sodium 137 mmol/L (136-145) 10/25/16 17:55 Potassium 3.6 mmol/L (3.5-5.1) 10/25/16 17:55 Chloride 103 mmol/L (98-107) 10/25/16 17:55 Carbon Dioxide 28 mmol/L (22-28) 10/25/16 17:55 Anion Gap 6 (8-16) L 10/25/16 17:55 BUN 14 mg/dl (7-18) D 10/25/16 17:55 Creatinine 0.9 mg/dl (0.6-1.3) D 10/25/16 17:55 Creat Clearance w eGFR > 60 (>60) 10/25/16 17:55 Random Glucose 120 mg/dl (74-106) H 10/25/16 17:55 Calcium 8.7 mg/dl (8.4-10.2) 10/25/16 17:55 Total Bilirubin < 0.3 mg/dl (0.2-1.0) D 10/25/16 17:55 AST 20 U/L (10-42) 10/25/16 17:55 ALT 19 U/L (10-40) 10/25/16 17:55 Alkaline Phosphatase 70 U/L (32-92) 10/25/16 17:55 Creatine Kinase 89 IU/L (26-140) 10/26/16 12:52 Troponin I < 0.03 ng/ml (0.03-0.50) L 10/26/16 12:52 Total Protein 6.6 g/dl (6.4-8.3) 10/25/16 17:55 Albumin 3.8 g/dl (3.5-5.0) 10/25/16 17:55 Urine Color Yellow 10/25/16 18:09 Urine Appearance Clear 10/25/16 18:09 Urine pH 5.5 (4.5-8) D 10/25/16 18:09 Ur Specific [place] 1.015 (1.005-1.025) 10/25/16 18:09 Urine Protein Negative (NEGATIVE) 10/25/16 18:09 Urine Glucose (UA) Negative (NEGATIVE) 10/25/16 18:09 Urine Ketones Negative (NEGATIVE) 10/25/16 18:09 Urine Blood Negative (NEGATIVE) 10/25/16 18:09 Urine Nitrite Negative (NEGATIVE) 10/25/16 18:09 Urine Bilirubin Negative (NEGATIVE) 10/25/16 18:09 Urine Urobilinogen 0.2 e.u/dl (0.2-1.0) 10/25/16 18:09 Ur Leukocyte Esterase Negative (NEGATIVE) 10/25/16 18:09 Urine HCG, Qual Negative 10/25/16 18:09 cxr: clear lungs tele: sr echo 10/2016: nl lv/rv, no sig valve path, rvsp 38 mibi 09/2013: nl ett, mild apical ischemia, nl lvef ecg 10/25/16: sr, nl intervals, no ischemic changes, no sig change from 09/24/14 ecg a/p: 51 f no sig pmhx here with cp. cp: -atypical cp -ce's neg x3 -ecg, tele, and echo unremarkable -no signs acs -pt had same cp 09/2013 and admitted here and had mildly abnormal mibi. She was discharged but cp persisted so went back to [facility] the same day of discharge and she reports (pt is a knowledgeable historian) having cardiac cath then with only mild dz, no pci warranted. -given her prior unremarkable cath for this same cp as well as her current unremarkable testing, it does not seem that this cp is cardiac. -pt can f/u as outpt and will consider elective updated stress testing cardiac muñoz stable for dc
--- NOTE | 2016-10-26 18:04 | DS ---
Physical Examination Vital Signs: Vital Signs Temperature 98.1 F 10/26/16 14:18 Pulse Rate 79 10/26/16 14:18 Respiratory Rate 16 10/26/16 14:18 Blood Pressure 101/42 10/26/16 14:18 O2 Sat by Pulse Oximetry (%) 99 10/26/16 14:18 Constitutional: Yes: No Distress HENT: Yes: Atraumatic Neck: Yes: Supple Cardiovascular: Yes: Regular Rate and Rhythm Respiratory: Yes: CTA Bilaterally Gastrointestinal: Yes: Normal Bowel Sounds Extremities: Yes: WNL Neurological: Yes: Alert, Oriented Discharge Summary Reason For Visit: CHEST PAIN Current Active Problems Chest pain (Acute) Condition: Stable - Home Medications Comprehensive Discharge Medication List: Ambulatory Orders Aspirin [ASA -] 81 mg PO DAILY #30 tab.chew 10/26/16 cleared by cardiology to be dc, atypical chest pain pt need to fu cardio for possible stress test
--- NOTE | 2016-10-27 13:44 | EKG ---
Test Reason : Blood Pressure : / mmHG Vent. Rate : 062 BPM Atrial Rate : 062 BPM P-R Int : 142 ms QRS Dur : 088 ms QT Int : 420 ms P-R-T Axes : 060 042 021 degrees QTc Int : 426 ms NORMAL SINUS RHYTHM NORMAL ECG WHEN COMPARED WITH ECG OF 25-OCT-2016 17:25, NO SIGNIFICANT CHANGE WAS FOUND Confirmed by ANTONY SOLIS MD ([id number]) on 10/27/2016 1:43:42 PM Referred By: Confirmed By:ANTONY SOLIS MD
== END 2016-10-26 18:45 | disposition home or self-care (01) ==
LOC: FER 17:14 → FM/S 19:53
PROVIDERS: ADMIT Internal Medicine; ATTEND Internal Medicine
DX: R07.89 Other chest pain (principal); Z79.82 Long term (current) use of aspirin
CPT/HCPCS: 36415; 71010-TC; 80053; 81003; 82550; 84484; 84703; 85025; 93005; 93010; 93306-TC; 99284-25; G0378

== ENCOUNTER 2017-02-16 18:51 | Emergency (ER) | payer OTHER ==
[2017-02-16 18:57] VITALS: BMI 32.5
--- NOTE | 2017-02-16 19:20 | PDOC ---
History of Present Illness - General History Source: Patient Exam Limitations: No Limitations <Inna Enciso - Last Filed: 02/16/17 20:24> <Prachi Yoder - Last Filed: 02/17/17 05:57> - General Chief Complaint: Chest Pain Stated Complaint: CHEST PAIN Time Seen by Provider: 02/16/17 19:16 - History of Present Illness Initial Comments: 02/16/17 19:48 The patient is a 51 year old female with no significant past medical history of who presents to the ED with complaints of left sided chest pain for the past five hours. The patient states the pain came on while she was at work, sitting down in front of her computer. It began in her left upper back, and began to radiate to her chest, up her neck and down her left arm. She describes it as a squeezing pain that is constant, without any modifying factors. The patient has been seen numerous times in the past for chest pain but states that her current pain is unlike anything she has ever experienced. About a month ago the patient was seen at [facility] where she had a cardiac catheterization and was found to have two blockages,one 75% and one 25%. She adds since the procedure she has also noticed bilateral lower extremity swelling. The only recent travel she endured was a 2 hour car ride to [facility] two weeks ago. She denies any fever, chills, nausea, vomiting, diarrhea, cough, or urinary symptoms. Positive risk factors for coronary artery disease include prominent cardiac history between her two brothers and obesity. Social history: Patient denies smoking. The patient is a single mother. (Inna Enciso) Past History <Inna Enciso - Last Filed: 02/16/17 20:24> - Past Medical History HTN: Yes Suicide Attempt (Hx): No - Psycho/Social/Smoking Cessation Hx Anxiety: No Suicidal Ideation: No Smoking History: Never smoked Have you smoked in the past 12 months: No Number of Cigarettes Smoked Daily: 0 Cigars Per Day: 0 Hx Alcohol Use: No Drug/Substance Use Hx: No Substance Use Type: None <Prachi Ydoer - Last Filed: 02/17/17 05:57> - Past Medical History Allergies/Adverse Reactions: Allergies Allergy/AdvReac Type Severity Reaction Status Date / Time No Known Allergies Allergy Verified 02/16/17 18:53 Home Medications: Ambulatory Orders NK [No Known Home Medication] 02/16/17 Review of Systems - Review of Systems Able to Perform ROS?: Yes All Other Systems: Reviewed and Negative <Inna Enciso - Last Filed: 02/16/17 20:24> <Prachi Yoder - Last Filed: 02/17/17 05:57> - Review of Systems Comments:: 02/16/17 19:48 CONSTITUTIONAL: Absent: fever, chills, diaphoresis, generalized weakness, malaise, loss of appetite HEENT: Absent: rhinorrhea, nasal congestion, throat pain, throat swelling, difficulty swallowing, mouth swelling, ear pain, eye pain, visual Changes CARDIOVASCULAR: Present: chest pain, lower extremity edema Absent: syncope, palpitations, irregular heart rate, lightheadedness RESPIRATORY: Absent: cough, shortness of breath, dyspnea with exertion, orthopnea, wheezing, stridor, hemoptysis GASTROINTESTINAL: Absent: abdominal pain, abdominal distension, nausea, vomiting, diarrhea, constipation, melena, hematochezia GENITOURINARY: Absent: dysuria, frequency, urgency, hesitancy, hematuria, flank pain, genital pain MUSCULOSKELETAL: Absent: myalgia, arthralgia, joint swelling SKIN: Absent: rash, itching, pallor HEMATOLOGIC/IMMUNOLOGIC: Absent: easy bleeding, easy bruising, lymphadenopathy, frequent infections ENDOCRINE: Absent: unexplained weight gain, unexplained weight loss, heat intolerance, cold intolerance NEUROLOGIC: Absent: headache, focal weakness or paresthesias, dizziness, unsteady gait, seizure, mental status changes, bladder or bowel incontinence PSYCHIATRIC: Absent: anxiety, depression, suicidal or homicidal ideation, hallucinations. (Inna Enciso) *Physical Exam <Inna Enciso - Last Filed: 02/16/17 20:24> <Prachi Yoder - Last Filed: 02/17/17 05:57> - Vital Signs Last Vital Signs Temp Pulse Resp BP Pulse Ox 76 16 100/56 98 02/16/17 22:16 02/16/17 22:16 02/16/17 22:16 02/16/17 22:16 - Physical Exam Comments: 02/16/17 19:49 GENERAL: Well developed, well nourished. Awake and alert. No acute distress. HEENT: Normocephalic, atraumatic. PERRLA, EOMI. No conjunctival pallor. Sclera are non- icteric. Moist mucous membranes. Oropharynx is clear. NECK: Supple. Full ROM. No JVD. Carotid pulses 2+ and symmetric, without bruits. No thyromegaly. No lymphadenopathy. CARDIOVASCULAR: II/ systolic murmur heard over left side of sternal border. Regular rate and rhythm. No rubs or gallops. Distal pulses are 2+ and symmetric. PULMONARY: No evidence of respiratory distress. Lungs clear to auscultation bilaterally. No wheezing, rales or rhonchi. ABDOMINAL: Soft. Non-tender. Non-distended. No rebound or guarding. No organomegaly. Normoactive bowel sounds. MUSCULOSKELETAL Normal range of motion at all joints. No bony deformities or tenderness. No CVA tenderness. EXTREMITIES: No cyanosis. No clubbing. No edema. No calf tenderness. SKIN: Warm and dry. Normal capillary refill. No rashes. No jaundice. NEUROLOGICAL: Alert, awake, appropriate. Cranial nerves 2-12 intact. No deficits to light touch and temperature in face, upper extremities and lower extremities. No motor deficits in the in face, upper extremities and lower extremities. Normoreflexic in the upper and lower extremities. Normal speech. Toes are down-going bilaterally. Gait is normal without ataxia. PSYCHIATRIC: Cooperative. Good eye contact. Appropriate mood and affect. (Inna Enciso) 12-lead electrocardiogram was performed and interpreted by me, shows normal sinus rhythm at 80 bpm; axis, intervals and wave forms are all normal. Is no evidence of acute ST or T-wave abnormalities. (Prachi Yoder) ED Treatment Course - LABORATORY CBC & Chemistry Diagram: 02/16/17 19:47 02/16/17 19:47 <Inna Enciso - Last Filed: 02/16/17 20:24> - LABORATORY CBC & Chemistry Diagram: 02/16/17 19:47 02/16/17 19:47 <Prachi Yoder - Last Filed: 02/17/17 05:57> - ADDITIONAL ORDERS Additional order review: Laboratory Results 02/16/17 02/16/17 02/16/17 23:00 19:47 19:47 Sodium 134 L Potassium 3.6 Chloride 103 Carbon Dioxide 27 Anion Gap 4 L BUN 15 Creatinine 0.6 D Creat Clearance w eGFR > 60 Random Glucose 151 H D Calcium 8.6 Total Bilirubin 0.4 D AST 18 ALT 23 D Alkaline Phosphatase 55 D Creatine Kinase 103 107 Troponin I < 0.03 L < 0.03 L Total Protein 6.3 L Albumin 3.6 02/16/17 19:47 RBC 4.40 MCV 75.4 L MCHC 33.1 RDW 13.8 MPV 8.4 Neutrophils % 61.7 Lymphocytes % 26.9 Monocytes % 4.8 Eosinophils % 5.7 H Basophils % 0.9 - Medications Given in the ED: ED Medications Discontinued Medications Generic Name Dose Route Start Last Admin Trade Name Freq PRN Reason Stop Dose Admin Famotidine/Sodium Chloride 50 mls @ 100 mls/hr 02/16/17 22:33 02/16/17 22:40 Pepcid 20 Mg Premixed Ivpb - IVPB 02/16/17 23:02 100 mls/hr ONCE ONE Administration Ketorolac Tromethamine 30 mg 02/16/17 20:47 02/16/17 21:28 Toradol Injection - IVPUSH 02/16/17 20:48 30 mg ONCE ONE Administration Progress Note <Inna Enciso - Last Filed: 02/16/17 20:24> <Prachi Yoder - Last Filed: 02/17/17 05:57> - Progress Note Progress Note: Documentation has been prepared under my direction and personally reviewed by me in its entirety. I attest that this documented accurately reflects all work, treatment, procedures and medical decision making performed by me. (Prachi Yoder) Medical Decision Making <Inna Enciso - Last Filed: 02/16/17 20:24> <Prachi Yoder - Last Filed: 02/17/17 05:57> - Medical Decision Making As noted above, this 51-year-old woman with a few risk factors for coronary artery disease and cardiac catheterization a few months ago reportedly showing partial occlusion of coronary vessels, presents with 1 day history of chest pain. Exam, as noted is normal. She has a normal 12-lead electrocardiogram. Full workup laboratory including cardiac enzymes was sent. Patient given Toradol 30 mg IV for possible musculoskeletal etiology of pain. Laboratory evaluation essentially normal without elevation of troponin. Patient reports that pain was somewhat better but recurred after Toradol IV. Because the patient has 2 risk factors for coronary artery disease and recurrent (albeit mild) pain, second set of cardiac enzymes will be sent. Second set of CK/troponin sent for hours after first set. Second set negative for elevation of CK or troponin. Patient feels better after 20 mg Pepcid IV. She feels comfortable to go home and will have follow-up with her automatic i threading machine feeder in the next few days. She has not had contact with the automatic i threading machine feeder since cardiac catheterization was performed. She strongly urged to call the office tomorrow and arrange follow- up within the next few days. If she has any worsening of her pain or experiences radiation of the pain/diaphoresis/nausea/shortness of breath, she should return to the emergency room (Prachi Yoder) *DC/Admit/Observation/Transfer <Inna Enciso - Last Filed: 02/16/17 20:24> <Prachi Yoder - Last Filed: 02/17/17 05:57> Diagnosis at time of Disposition: Atypical chest pain - Discharge Dispostion Disposition: HOME Condition at time of disposition: Stable - Patient Instructions Printed Discharge Instructions: DI for Atypical Chest Pain Additional Instructions: rest; drink plenty of fluids followup with your automatic i threading machine feeder within 5 days return to ER if you have persistent chest pain or shortness of breath - Attestations Scribe Attestion: 02/16/17 19:50 Documentation prepared by Inna Enciso, acting as medical record administrator for Prachi Yoder MD. (Inna Enciso)
[2017-02-16 19:58] LABS: BASOPHIL 0.9 % (0-2.0); EOSINOPHIL 5.7 % (0-4.5); MCH 24.9 pg (25.7-33.7); MCHC 33.1 g/dl (32.0-36.0); MEAN CELL VOLUME 75.4 fl (80-96); MEAN PLT VOLUME 8.4 fl (7.5-11.1); NEUTROPHILS 61.7 % (42.8-82.8); PLATELET COUNT 252 K/MM3 (134-434); RDW 13.8 % (11.6-15.6); WHITE BLOOD COUNT 8.9 K/mm3 (4.0-10.8)
[2017-02-16 20:06] LABS: ALBUMIN 3.6 g/dl (3.5-5.0); ALK PHOS 55 U/L (32-92); ANION GAP 4 (8-16); BILIRUBIN,TOTAL 0.4 mg/dl (0.2-1.0); CALCIUM 8.6 mg/dl (8.4-10.2); CO2 27 mmol/L (22-28); CREATININE 0.6 mg/dl (0.6-1.3); GLUCOSE,RANDOM 151 mg/dl (74-106); SGOT/AST 18 U/L (10-42); SGPT/ALT 23 U/L (10-40); TOT PROT 6.3 g/dl (6.4-8.3)
[2017-02-16 20:07] LABS: CPK 107 IU/L (26-192)
[2017-02-16 20:41] LABS: TROPONIN I (DFP) < 0.03 ng/ml (0.03-0.50)
[2017-02-16] MEDS ORDERED: KETOROLAC TROMETHAMINE 30 MG/1 ML VIAL IVPUSH ONE (20:47)
[2017-02-16] MEDS ORDERED: KETOROLAC TROMETHAMINE 30 MG/1 ML VIAL ONE (21:25)
[2017-02-16 22:18] VITALS: BP 100/56; PULSE 76
[2017-02-16] MEDS ORDERED: FAMOTIDINE 20 MG/50 ML IVPB 50 ML IVPB ONE ×2 (22:33→22:38)
[2017-02-16 23:27] LABS: CPK 103 IU/L (26-192)
[2017-02-16 23:36] LABS: TROPONIN I (DFP) < 0.03 ng/ml (0.03-0.50)
--- NOTE | 2017-02-17 09:53 | EKG ---
Test Reason : Blood Pressure : / mmHG Vent. Rate : 080 BPM Atrial Rate : 080 BPM P-R Int : 140 ms QRS Dur : 086 ms QT Int : 388 ms P-R-T Axes : 065 055 020 degrees QTc Int : 447 ms NORMAL SINUS RHYTHM NORMAL ECG WHEN COMPARED WITH ECG OF 26-OCT-2016 00:57, NO SIGNIFICANT CHANGE WAS FOUND Confirmed by ANTONY SOLIS MD ([id number]) on 02/17/2017 9:53:37 AM Referred By: MD MANCILLA Confirmed By:ANTONY SOLIS MD
== END 2017-02-17 00:31 | disposition home or self-care (01) ==
LOC: FER 18:51
PROC: 3E0333Z Introduction of Anti-inflammatory into Peripheral Vein, Percutaneous Approach (ICD-10-PCS; principal; 2017-02-16)
PROC: 3E033GC Introduction of Other Therapeutic Substance into Peripheral Vein, Percutaneous Approach (ICD-10-PCS; 2017-02-16)
DX: R07.89 Other chest pain (principal); I10 Essential (primary) hypertension
CPT/HCPCS: 36415; 80053; 84484; 85025; 93005; 93010; 99284-25

== ENCOUNTER 2017-07-24 13:29 | Emergency (ER) | payer OTHER ==
[2017-07-24 13:35] VITALS: BMI 31.7
--- NOTE | 2017-07-24 13:45 | PDOC ---
History of Present Illness - General Chief Complaint: Respiratory Stated Complaint: COUGH & COLD SX Time Seen by Provider: 07/24/17 13:35 History Source: Patient Exam Limitations: No Limitations - History of Present Illness Initial Comments: 51 yo F presents with 2 day history of fever, muscle aches, weakness, malaise. She states she did not have the flu shot this year. No known sick contacts. She took tylenol for fever this morning with some relief of symptoms. She has had poor appetite, eating and drinking less than usual. No abd pain, N/V/D, dysuria , congestion, cough. Past History - Past Medical History Allergies/Adverse Reactions: Allergies Allergy/AdvReac Type Severity Reaction Status Date / Time No Known Allergies Allergy Verified 07/24/17 13:30 Home Medications: Ambulatory Orders Acetaminophen [Tylenol -] 650 mg PO ASDIR 07/24/17 Cardiac Disorders: Yes (CAD) COPD: No HTN: Yes - Suicide/Smoking/Psychosocial Hx Smoking History: Never smoked Have you smoked in the past 12 months: No Number of Cigarettes Smoked Daily: 0 Cigars Per Day: 0 Information on smoking cessation initiated: No Hx Alcohol Use: No Drug/Substance Use Hx: No Substance Use Type: None Review of Systems - Review of Systems Able to Perform ROS?: Yes Comments:: GENERAL/CONSTITUTIONAL: +Fever, chills, and weakness. HEAD, EYES, EARS, NOSE AND THROAT: No change in vision. No ear pain or discharge. No sore throat. CARDIOVASCULAR: No chest pain or shortness of breath. RESPIRATORY: No cough, wheezing, or hemoptysis. GASTROINTESTINAL: No nausea, vomiting, diarrhea or constipation. GENITOURINARY: No dysuria, frequency, or change in urination. MUSCULOSKELETAL: No joint or muscle swelling or pain. No neck or back pain. SKIN: No rash NEUROLOGIC: No headache, vertigo, loss of consciousness, or change in strength/ sensation. ENDOCRINE: No increased thirst. No abnormal weight change. HEMATOLOGIC/LYMPHATIC: No anemia, easy bleeding, or history of blood clots. ALLERGIC/IMMUNOLOGIC: No hives or skin allergy. *Physical Exam - Vital Signs Last Vital Signs Temp Pulse Resp BP Pulse Ox 99 F 95 H 18 138/82 100 07/24/17 13:30 07/24/17 13:30 07/24/17 13:30 07/24/17 13:30 07/24/17 13:30 - Physical Exam Comments: GENERAL: Awake, alert, and fully oriented, in no acute distress. Appears ill but nontoxic. HEAD: No signs of trauma EYES: PERRLA, EOMI, sclera anicteric, conjunctiva clear ENT: Auricles normal inspection, hearing grossly normal, nares patent, oropharynx clear without exudates. Dry mucosa NECK: Normal ROM, supple, no lymphadenopathy, JVD, or masses LUNGS: Breath sounds equal, clear to auscultation bilaterally. No wheezes, and no crackles HEART: Regular rate and rhythm, normal S1 and S2, no murmurs, rubs or gallops ABDOMEN: Soft, nontender, normoactive bowel sounds. No guarding, no rebound. No masses EXTREMITIES: Normal range of motion, no edema. No clubbing or cyanosis. No cords, erythema, or tenderness NEUROLOGICAL: Cranial nerves II through XII grossly intact. Normal speech, normal gait SKIN: Warm, Dry, normal turgor, no rashes or lesions noted. ED Treatment Course - LABORATORY CBC & Chemistry Diagram: 07/24/17 14:10 07/24/17 14:10 Medical Decision Making - Medical Decision Making 07/24/17 16:17 Pt reports improvement in symptoms with antipyretics, IVF. CXR reviewed, no acute findings. Awaiting flu swab, then will DC home. 07/24/17 16:48 Flu swab positive. Patient is out of the window for tamiflu. Will DC home with recommendation for supportive care. *DC/Admit/Observation/Transfer Diagnosis at time of Disposition: Viral upper respiratory infection, Influenza - Discharge Dispostion Disposition: HOME Condition at time of disposition: Improved Admit: No - Referrals - Patient Instructions Printed Discharge Instructions: DI for Influenza -- Adult - Post Discharge Activity Forms/Work/School Notes: Back to Work
[2017-07-24] MEDS ORDERED: SODIUM CHLORIDE 1,000 ML IV STA (13:54)
[2017-07-24] MEDS ORDERED: KETOROLAC TROMETHAMINE 30 MG/1 ML VIAL IVPUSH ONE (13:54)
[2017-07-24] MEDS ORDERED: KETOROLAC TROMETHAMINE 30 MG/1 ML VIAL ONE (14:01)
[2017-07-24 14:28] LABS: BASO % 0.6 % (0-2.0); EOS % 7.7 % (0-4.5); HEMATOCRIT 37.5 % (32.4-45.2); HEMOGLOBIN 12.3 GM/dl (10.7-15.3); LYMPH % 14.3 % (8-40); MCH 26.4 pg (25.7-33.7); MCHC 32.7 g/dl (32.0-36.0); MEAN CELL VOLUME 80.6 fl (80-96); MEAN PLT VOLUME 8.5 fl (7.5-11.1); MONO % 6.1 % (3.8-10.2); NEUT % 71.3 % (42.8-82.8); PLATELET COUNT 255 K/MM3 (134-434); RBC 4.65 M/mm3 (3.60-5.2); RDW 13.4 % (11.6-15.6); WHITE BLOOD COUNT 5.8 K/mm3 (4.0-10.8)
[2017-07-24 14:35] LABS: ALBUMIN 3.7 g/dl (3.5-5.0); ALK PHOS 62 U/L (32-92); ANION GAP 6 (8-16); BILIRUBIN,TOTAL 0.3 mg/dl (0.2-1.0); BLOOD UREA NITROGEN 9 mg/dl (7-18); CALCIUM 8.7 mg/dl (8.4-10.2); CHLORIDE 103 mmol/L (98-107); CO2 26 mmol/L (22-28); CREATININE 0.5 mg/dl (0.6-1.3); GLUCOSE,RANDOM 126 mg/dl (74-106); POTASSIUM 3.8 mmol/L (3.5-5.1); SGOT/AST 33 U/L (10-42); SGPT/ALT 41 U/L (10-40); SODIUM 135 mmol/L (136-145); TOT PROT 6.9 g/dl (6.4-8.3)
[2017-07-24 16:57] VITALS: BP 116/70; PULSE 72; TEMP 98.1
== END 2017-07-24 16:50 | disposition home or self-care (01) ==
LOC: FER 13:29
PROC: 3E0333Z Introduction of Anti-inflammatory into Peripheral Vein, Percutaneous Approach (ICD-10-PCS; principal; 2017-07-24)
PROC: 3E0337Z Introduction of Electrolytic and Water Balance Substance into Peripheral Vein, Percutaneous Approach (ICD-10-PCS; 2017-07-24)
DX: J11.1 Influenza due to unidentified influenza virus with other respiratory manifestations (principal); J06.9 Acute upper respiratory infection, unspecified
CPT/HCPCS: 36415; 71046-TC; 80053; 85025; 87070; 87430; 87804; 99285-25

== ENCOUNTER 2017-08-15 15:33 | Emergency (ER) | payer OTHER ==
--- NOTE | 2017-08-15 15:43 | PDOC ---
History of Present Illness <Payton Frazier - Last Filed: 08/15/17 17:41> - General History Source: Patient Exam Limitations: No Limitations - History of Present Illness Initial Comments: 08/15/17 17:06 The patient is a 51 year old female, with a significant past medical history of hypertension, who presents to the emergency department complaining of cough, wheezing, and a headache for approximately 2 days. The patient reports her cough is dry in nature, with associated wheezing. Patient reports presenting to the ED out of concern she has asthma, because her father had a history of it. She denies any associated joint aches, fever, chills, sore throat, earache, or rhinorrhea. She denies any chest pain, shortness of breath, diaphoresis, or palpitations. Patient reports new onset of a headache, which she describes as a pressure. Patient states she has had a similar headache about 1 year ago, where she presented to [facility], and was given a medication(she does not recall the name of), which resolved her symptoms. She denies any associated changes in vision, dizziness, or lightheadedness. She denies any nausea, vomiting, diarrhea, constipation, or changes in urination. Patient reports she has been in contact with her son, who has had a fever, chills, cough , and diffuse joint aches. Patient denies any recent travel. Allergies: NKDA Past Surgical History: None reported. Social History: Non smoker. No ETOH or recreational drug use. <Jong Howell - Last Filed: 08/15/17 17:59> - General Chief Complaint: Cold Symptoms Stated Complaint: COUGH, BODY ACHES Time Seen by Provider: 08/15/17 15:43 Past History - Past Medical History Cardiac Disorders: Yes (CAD) COPD: No HTN: Yes - Suicide/Smoking/Psychosocial Hx Smoking History: Never smoked Have you smoked in the past 12 months: No Number of Cigarettes Smoked Daily: 0 Cigars Per Day: 0 Hx Alcohol Use: No Drug/Substance Use Hx: No Substance Use Type: None <Payton Frazier - Last Filed: 08/15/17 17:41> <Jong Howell - Last Filed: 08/15/17 17:59> - Past Medical History Allergies/Adverse Reactions: Allergies Allergy/AdvReac Type Severity Reaction Status Date / Time No Known Allergies Allergy Verified 08/15/17 15:42 Home Medications: Ambulatory Orders Acetaminophen [Tylenol -] 650 mg PO ASDIR 07/24/17 Albuterol Sulfate Inhaler - [Ventolin HFA Inhaler -] 2 inh PO Q4H PRN #1 inh Review of Systems - Review of Systems Able to Perform ROS?: Yes Comments:: 08/15/17 17:07 GENERAL/CONSTITUTIONAL: No fever or chills. No weakness. HEAD, EYES, EARS, NOSE AND THROAT: No change in vision. No ear pain or discharge. No sore throat. CARDIOVASCULAR: No chest pain or shortness of breath. RESPIRATORY: Yes cough, wheezing. No hemoptysis. GASTROINTESTINAL: No nausea, vomiting, diarrhea or constipation. GENITOURINARY: No dysuria, frequency, or change in urination. MUSCULOSKELETAL: No joint or muscle swelling or pain. No neck or back pain. SKIN: No rash NEUROLOGIC: Yes headache. No vertigo, loss of consciousness, or change in strength/sensation. ENDOCRINE: No increased thirst. No abnormal weight change. HEMATOLOGIC/LYMPHATIC: No anemia, easy bleeding, or history of blood clots. ALLERGIC/IMMUNOLOGIC: No hives or skin allergy. <Jong Howell - Last Filed: 08/15/17 17:59> *Physical Exam - Vital Signs Last Vital Signs Temp Pulse Resp BP Pulse Ox 98.2 F 79 15 146/77 97 08/15/17 15:35 08/15/17 15:35 08/15/17 15:35 08/15/17 15:35 08/15/17 15:35 - Physical Exam Comments: 08/15/17 17:07 GENERAL: Awake, alert, and fully oriented, in no acute distress HEAD: No signs of trauma EYES: PERRLA, EOMI, sclera anicteric, conjunctiva clear ENT: Auricles normal inspection, hearing grossly normal, nares patent, oropharynx clear without exudates. Moist mucosa NECK: Normal ROM, supple, no lymphadenopathy, JVD, or masses LUNGS: Breath sounds equal, clear to auscultation bilaterally. No wheezes, and no crackles HEART: Regular rate and rhythm, normal S1 and S2, no murmurs, rubs or gallops ABDOMEN: Soft, nontender, normoactive bowel sounds. No guarding, no rebound. No masses EXTREMITIES: Normal range of motion, no edema. No clubbing or cyanosis. No cords, erythema, or tenderness NEUROLOGICAL: Cranial nerves II through XII grossly intact. Normal speech, normal gait SKIN: Warm, Dry, normal turgor, no rashes or lesions noted. <Jong Howell - Last Filed: 08/15/17 17:59> ED Treatment Course - LABORATORY CBC & Chemistry Diagram: 08/15/17 16:55 08/15/17 16:55 <Payton Frazier - Last Filed: 08/15/17 17:41> - LABORATORY CBC & Chemistry Diagram: 08/15/17 16:55 08/15/17 16:55 - RADIOLOGY Radiograph Interpretation: 08/15/17 17:58 EXAM: CXR INTERPRETED BY: Dr. Velarde REVIEWED BY: Dr. Frazier IMPRESSION: No definite interval change from 07/24/2027 chest x-ray. No evidence of acute infiltrate, pulmonary vascular congestion or pleural effusion. - Medications Given in the ED: ED Medications Discontinued Medications Generic Name Dose Route Start Last Admin Trade Name Freq PRN Reason Stop Dose Admin Metoclopramide HCl 10 mg 08/15/17 16:05 08/15/17 16:40 Reglan Injection - IVPUSH 08/15/17 16:06 10 mg ONCE ONE Administration <DanteMontserratshelia - Last Filed: 08/15/17 17:59> Medical Decision Making - Medical Decision Making 08/15/17 17:41 pt presents to the ED complaining of head pressure that is similar to her chronic migraine and shortness of breath and wheezing that has now resolved. PAtient has a history of HTN and questionable CAD, so EKG and cardiac enzymes were sent to rule out ACS, and are negative. EKG is normal. CXR done to rule out PNA and is negative. Lungs are clear, but since patient is complaining of viral URI symptoms and intermittent wheezing, she may have reactive airway caused by her virus. I will prescribe her an albuterol MDI to use PRN. Headache is resolved after reglan. <Payton Frazier - Last Filed: 08/15/17 17:41> *DC/Admit/Observation/Transfer - Discharge Dispostion Admit: No <Payton Frazier - Last Filed: 08/15/17 17:41> - Attestations Scribe Attestion: 08/15/17 17:07 Documentation prepared by Jong Howell, acting as healthcare or medical for Payton Frazier MD. <Jong Howell - Last Filed: 08/15/17 17:59> Diagnosis at time of Disposition: Migraine Qualifiers: Migraine type: unspecified Status migrainosus presence: without status migrainosus Intractability: not intractable Qualified Code(s): G43.909 - Migraine, unspecified, not intractable, without status migrainosus - Discharge Dispostion Disposition: HOME Condition at time of disposition: Good - Prescriptions Prescriptions: Albuterol Sulfate Inhaler - [Ventolin HFA Inhaler -] 2 inh PO Q4H PRN #1 inh PRN Reason: Wheezing - Patient Instructions Printed Discharge Instructions: DI for Viral Upper Respiratory Infection -- Adult, DI for Headache Additional Instructions: return immediately to the ED for severe shortness of breath or chest pain. Return for worsening headache, headache with fever and stiff neck, other new or worsening symptoms. Call your doctor for follow up this week.
[2017-08-15 16:01] VITALS: BP 146/77; PULSE 79; TEMP 98.2; BMI 32.5
[2017-08-15] MEDS ORDERED: METOCLOPRAMIDE HCL INJECTION 10 MG/2 ML VIAL IVPUSH ONE (16:05)
[2017-08-15 17:06] LABS: BASO % 0.3 % (0-2.0); EOS % 7.1 % (0-4.5); HEMATOCRIT 36.1 % (32.4-45.2); HEMOGLOBIN 12.2 GM/dl (10.7-15.3); LYMPH % 26.8 % (8-40); MCH 27.3 pg (25.7-33.7); MCHC 33.8 g/dl (32.0-36.0); MEAN CELL VOLUME 80.7 fl (80-96); MEAN PLT VOLUME 8.7 fl (7.5-11.1); MONO % 7.3 % (3.8-10.2); NEUT % 58.5 % (42.8-82.8); PLATELET COUNT 287 K/MM3 (134-434); RBC 4.48 M/mm3 (3.60-5.2); RDW 13.4 % (11.6-15.6); WHITE BLOOD COUNT 7.3 K/mm3 (4.0-10.8)
[2017-08-15 17:22] LABS: ALBUMIN 3.8 g/dl (3.5-5.0); ALK PHOS 68 U/L (32-92); ANION GAP 8 (8-16); BILIRUBIN,TOTAL 0.4 mg/dl (0.2-1.0); BLOOD UREA NITROGEN 12 mg/dl (7-18); CALCIUM 8.7 mg/dl (8.4-10.2); CHLORIDE 103 mmol/L (98-107); CO2 26 mmol/L (22-28); CREATININE 0.6 mg/dl (0.6-1.3); GLUCOSE,RANDOM 90 mg/dl (74-106); POTASSIUM 3.7 mmol/L (3.5-5.1); SGOT/AST 24 U/L (10-42); SGPT/ALT 28 U/L (10-40); SODIUM 137 mmol/L (136-145); TOT PROT 6.8 g/dl (6.4-8.3)
[2017-08-15 19:45] LABS: N-TERMINAL BNP 13.07 pg/ml (5-125)
--- NOTE | 2017-08-16 12:28 | EKG ---
Test Reason : Blood Pressure : / mmHG Vent. Rate : 068 BPM Atrial Rate : 068 BPM P-R Int : 146 ms QRS Dur : 082 ms QT Int : 404 ms P-R-T Axes : 066 057 023 degrees QTc Int : 429 ms POOR DATA QUALITY, INTERPRETATION MAY BE ADVERSELY AFFECTED NORMAL SINUS RHYTHM CANNOT RULE OUT INFERIOR INFARCT , AGE UNDETERMINED ABNORMAL ECG WHEN COMPARED WITH ECG OF 16-FEB-2017 19:01, NO SIGNIFICANT CHANGE WAS FOUND Confirmed by MD Juanita, Galen ([id number]) on 08/16/2017 12:28:06 PM Referred By: CYRIL Confirmed By:Galen Grant MD
== END 2017-08-15 18:10 | disposition home or self-care (01) ==
LOC: FER 15:33
PROC: 3E033GC Introduction of Other Therapeutic Substance into Peripheral Vein, Percutaneous Approach (ICD-10-PCS; principal; 2017-08-15)
DX: G43.909 Migraine, unspecified, not intractable, without status migrainosus (principal)
CPT/HCPCS: 36415; 71046-TC; 80053; 82550; 82553; 83880; 84484; 85025; 93005; 96374; 99283-25

== ENCOUNTER 2017-08-20 18:47 | Emergency (ER) | payer OTHER ==
[2017-08-20 18:51] VITALS: BP 152/80; PULSE 87; TEMP 98.9; BMI 32.5
--- NOTE | 2017-08-20 19:06 | PDOC ---
History of Present Illness - History of Present Illness Initial Comments: 08/20/17 19:33 51 y/o F with a PMH of 2 clogged arteries (cardiac cath 4 months ago - one is 25 % and 35% blockage) presents to the ED with diffuse chest heaviness and pain for a week. Patient states that she had the flu 3 weeks ago, which has since resolved. After the flu, she experienced some wheezing, which is intermittent. She states that the chest pain is deep and heavy and sore to touch. Patient states the pain is worsening. Denies fever, chills. Denies nausea, vomiting, diarrhea. Denies SOB, palpitations. PAST MEDICAL HISTORY: clogged arteries (25 and 30% 4 months ago) PAST SURGICAL HISTORY: no significant history FAMILY HISTORY: no pertinent history SOCIAL HISTORY: Pt lives with family and is employed. MEDICATIONS: reviewed ALLERGIES: As per nursing notes Review of Systems: General: No fevers or chills, no weakness, no weight loss HEENT: No change in vision. No sore throat,. No ear pain CardioVascular: (+) diffuse chest heaviness. No shortness of breath Respiratory: (+) wheezing. No cough Gastrointestinal: no nausea, vomiting, diarrhea or constipation, No rectal bleeding Genitourinary: No dysuria, hematuria, or frequency Musculoskeletal: No joint or muscle pain or swelling Neurologic: No headache, vertigo, dizziness or loss of consciousness Psychiatric: No depression Skin: No rashes or easy bruising Endocrine: No increased thirst or abnormal weight change Allergic: No skin or latex allergy All other systems reviewed and normal Physical Exam: General: Well-nourished well-developed individual, no acute distress HEENT: Throat: Normal, tonsils normal, no erythema or exudate Neck: Supple, no meningeal signs, no lymphadenopathy Eyes: Pupils equal reactive and round, extraocular motion intact Chest: Nontender to palpation Cardiac: S1-S2 normal, regular rate and rhythm, no murmurs rubs or gallops Respiratory: Lungs clear to auscultation bilateral, no wheezing, good air entry Extremities: Warm, dry, no cyanosis, clubbing, or edema Skin: No rashes Neuro: Alert and oriented x3, nonfocal exam, grossly intact, normal gait Psych: Normal mood and affect 08/20/17 20:17 <Bridget Bergman - Last Filed: 08/20/17 20:17> - History of Present Illness Initial Comments: Medical decision making: This is a 51-year-old female who comes in complaining of chest tightness/ pressure that appears to be pleuritic in nature as well as a skeletal muscular component. Patient says that the discomfort is worse with movement, worse with coughing worse with deep respiration. Patient has a history significant for a recent cardiac catheter that did show a 25% and 30% blockage of 2 of her arteries however patient said that she occasionally gets some discomfort that is different from what she has today and attributes that to her heart. Patient said she recently had the flu and that these symptoms began after the flu and have persisted however she denies productive cough or fevers at this time. Given patient's cardiac history and recent flu I will obtain a workup including CBC, anabolic profile, cardiac profile, EKG and chest x-ray We'll give her an anti-inflammatory for the chest discomfort Will reassess and follow-up A portion of this note was documented by scribe services under my direction. I have reviewed the details of the note, within reason, and agree with the documentation. The case summary and management plan written by me. Reassessment patient feels better post nonsteroidal anti-inflammatories Assessment and plan: This is a 51-year-old female who comes in with pleuritic type chest pain. Patient had a workup including a normal cardiogram and labs with a normal troponin. Patient's heart score is 1. Patient improved with anti- inflammatories. Patient symptoms are most likely secondary to a pleuritis post a viral upper respiratory tract infection. 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 <Jan Estrada I - Last Filed: 08/21/17 00:33> - General Chief Complaint: Wheezing Stated Complaint: pt states she is wheezing Time Seen by Provider: 08/20/17 19:05 Past History <Bridget Bergman - Last Filed: 08/20/17 20:17> - Past Medical History Cardiac Disorders: Yes (cardiac cath 4mnths ago,no need for stents) COPD: No HTN: Yes - Suicide/Smoking/Psychosocial Hx Smoking History: Never smoked Have you smoked in the past 12 months: No Number of Cigarettes Smoked Daily: 0 Cigars Per Day: 0 Hx Alcohol Use: No Drug/Substance Use Hx: No Substance Use Type: None <Jan Estrada I - Last Filed: 08/21/17 00:33> - Past Medical History Allergies/Adverse Reactions: Allergies Allergy/AdvReac Type Severity Reaction Status Date / Time No Known Allergies Allergy Verified 08/15/17 15:42 Home Medications: Ambulatory Orders Acetaminophen [Tylenol -] 650 mg PO ASDIR 07/24/17 Albuterol Sulfate Inhaler - [Ventolin HFA Inhaler -] 2 inh PO Q4H PRN #1 inh Albuterol Sulfate Inhaler - [Ventolin HFA Inhaler -] 1 - 2 inh PO Q4H #1 inhaler 08/20/17 *Physical Exam - Vital Signs Last Vital Signs Temp Pulse Resp BP Pulse Ox 98.9 F 87 18 152/80 100 08/20/17 18:48 08/20/17 18:48 08/20/17 18:48 08/20/17 18:48 08/20/17 18:48 <Bridget Bergman A - Last Filed: 08/20/17 20:17> - Vital Signs Last Vital Signs Temp Pulse Resp BP Pulse Ox 98.9 F 87 18 152/80 100 08/20/17 18:48 08/20/17 18:48 08/20/17 18:48 08/20/17 18:48 08/20/17 18:48 <Jan Estrada I - Last Filed: 08/21/17 00:33> Heart Score/ECG Review - ECG Intrepretation Comment:: 08/20/17 19:44 Normal Sinus Rhythm at 72 bpm. <Bridget Bergman A - Last Filed: 08/20/17 20:17> - History History: Slightly suspicious - Electrocardiogram EKG: Normal - Age Age: </= 45 - Risk Factors Risk Factors Heart Score: Yes Hx Hypertension Based on the list above the patient has:: 1-2 risk factors - Troponin Troponin: </= normal limit - Score Heart Score - Total: 1 <Jan Estrada I - Last Filed: 08/21/17 00:33> ED Treatment Course - LABORATORY CBC & Chemistry Diagram: 08/20/17 19:40 08/20/17 19:40 <Bridget Bergman - Last Filed: 08/20/17 20:17> - LABORATORY CBC & Chemistry Diagram: 08/20/17 19:40 08/20/17 19:40 <Jan Estrada I - Last Filed: 08/21/17 00:33> *DC/Admit/Observation/Transfer - Attestations Scribe Attestion: 08/20/17 19:33 Documentation prepared by Bridget Bergman, acting as medical practice assistant for Jan Estrada MD. <Bridget Bergman - Last Filed: 08/20/17 20:17> - Discharge Dispostion Admit: No <Jan Estrada I - Last Filed: 08/21/17 00:33> Diagnosis at time of Disposition: Chest pain, pleuritic - Discharge Dispostion Disposition: HOME Condition at time of disposition: Stable - Prescriptions Prescriptions: Albuterol Sulfate Inhaler - [Ventolin HFA Inhaler -] 1 - 2 inh PO Q4H #1 inhaler - Patient Instructions Additional Instructions: Take Tylenol or Motrin as needed for the chest pain. I have sent a prescription to your pharmacy for a inhaler that you can use for wheezing 2 puffs as often as every 4 hours if needed. If you're not better by next week follow-up with your primary care doctor. Return to the emergency department immediately with ANY new, persistent or worsening symptoms. Continue any medications as previously prescribed by your physician. You should follow up with your primary doctor as soon as possible regarding today's emergency department visit. . Please make sure your doctor reviews the results of your emergency evaluation. Thank you for coming to the Emergency Department today for your care. It was a pleasure to see you today. Please note that your evaluation is INCOMPLETE until you follow-up with your doctor.
[2017-08-20 20:00] LABS: PH,URINE 6.5 (4.5-8); URINE APPEARANCE Clear; URINE BILIRUBIN Negative (NEGATIVE); URINE BLOOD Negative (NEGATIVE); URINE GLUCOSE (UA) Negative (NEGATIVE); URINE KETONE Negative (NEGATIVE); URINE LEUK ESTERASE Negative (NEGATIVE); URINE NITRITE Negative (NEGATIVE); URINE PROTEIN Negative (NEGATIVE); URINE UROBILINOGEN 0.2 (0.2-1.0)
[2017-08-20 20:02] LABS: URINE COLOR YELLOW
[2017-08-20 20:03] LABS: HCG,QUALITATIVE URINE NEGATIVE
[2017-08-20 20:12] LABS: BASO % 0.4 % (0-2.0); EOS % 8.5 % (0-4.5); HEMATOCRIT 36.5 % (32.4-45.2); HEMOGLOBIN 12.1 GM/dl (10.7-15.3); LYMPH % 29.7 % (8-40); MCH 26.7 pg (25.7-33.7); MCHC 33.3 g/dl (32.0-36.0); MEAN CELL VOLUME 80.2 fl (80-96); MEAN PLT VOLUME 8.7 fl (7.5-11.1); MONO % 5.9 % (3.8-10.2); NEUT % 55.5 % (42.8-82.8); PLATELET COUNT 274 K/MM3 (134-434); RBC 4.55 M/mm3 (3.60-5.2); RDW 12.8 % (11.6-15.6); WHITE BLOOD COUNT 8.5 K/mm3 (4.0-10.8)
[2017-08-20 20:22] LABS: ALBUMIN 3.9 g/dl (3.5-5.0); ALK PHOS 71 U/L (32-92); ANION GAP 7 (8-16); BILIRUBIN,TOTAL 0.2 mg/dl (0.2-1.0); BLOOD UREA NITROGEN 13 mg/dl (7-18); CALCIUM 8.9 mg/dl (8.4-10.2); CHLORIDE 100 mmol/L (98-107); CO2 28 mmol/L (22-28); CREATININE 0.6 mg/dl (0.6-1.3); GLUCOSE,RANDOM 107 mg/dl (74-106); POTASSIUM 3.7 mmol/L (3.5-5.1); SGOT/AST 24 U/L (10-42); SGPT/ALT 31 U/L (10-40); SODIUM 135 mmol/L (136-145); TOT PROT 6.9 g/dl (6.4-8.3)
[2017-08-20] MEDS ORDERED: KETOROLAC TROMETHAMINE 30 MG/1 ML VIAL IVPUSH ONE (20:49)
[2017-08-20] MEDS ORDERED: KETOROLAC TROMETHAMINE 30 MG/1 ML VIAL ONE (20:55)
--- NOTE | 2017-08-22 14:00 | EKG ---
Test Reason : Blood Pressure : / mmHG Vent. Rate : 072 BPM Atrial Rate : 072 BPM P-R Int : 136 ms QRS Dur : 086 ms QT Int : 388 ms P-R-T Axes : 057 052 015 degrees QTc Int : 424 ms NORMAL SINUS RHYTHM NORMAL ECG WHEN COMPARED WITH ECG OF 15-AUG-2017 16:28, NO SIGNIFICANT CHANGE WAS FOUND Confirmed by ANTONY SOLIS MD ([id number]) on 08/22/2017 1:59:49 PM Referred By: LUTHER SMITH Confirmed By:ANTONY SOLIS MD
== END 2017-08-20 21:01 | disposition home or self-care (01) ==
LOC: FER 18:47
PROC: 3E0333Z Introduction of Anti-inflammatory into Peripheral Vein, Percutaneous Approach (ICD-10-PCS; principal; 2017-08-20)
DX: R07.89 Other chest pain (principal); I10 Essential (primary) hypertension
CPT/HCPCS: 36415; 71046-TC-FY; 80053; 81003; 82550; 82553; 84484; 84703; 85025; 93005; 99282-25

== ENCOUNTER 2018-01-31 21:38 | Emergency (ER) | payer SELFPAY ==
[2018-01-31 21:56] VITALS: BP 112/71; PULSE 80; TEMP 98.6; BMI 32.9
--- NOTE | 2018-01-31 22:38 | PDOC ---
History of Present Illness - General Chief Complaint: Pain, Acute Stated Complaint: ALLERGIES, STRANGE PAIN IN HEAD AND NECK Time Seen by Provider: 01/31/18 21:44 - History of Present Illness Initial Comments: This 52-year-old woman with a history of hypertension/CAD and seasonal ALLERGIES , presents with 1 day history of mild generalized headache and lightheadedness . She describes symptoms as beginning after she sneezed this morning. She has had recent nasal congestion/discharge (clear, nonpurulent) and has taken Claritin (last dose 2 PM today). She has had no fever/chills, stiff neck ( although she has some minor neck discomfort today). There has been no cough/ shortness breath/wheezing. She denies gastrointestinal symptoms. There has been no facial droop/extremity weakness/difficulty with speech or swallowing. Past History - Past Medical History Allergies/Adverse Reactions: Allergies Allergy/AdvReac Type Severity Reaction Status Date / Time No Known Allergies Allergy Verified 01/31/18 21:40 Home Medications: Ambulatory Orders Montelukast Sodium [Singulair] 10 mg PO DAILY #20 tablet 01/31/18 Cardiac Disorders: Yes (cardiac cath 4mnths ago,no need for stents) COPD: No HTN: Yes - Suicide/Smoking/Psychosocial Hx Smoking History: Never smoked Have you smoked in the past 12 months: No Number of Cigarettes Smoked Daily: 0 Cigars Per Day: 0 Information on smoking cessation initiated: No Hx Alcohol Use: No Drug/Substance Use Hx: No Substance Use Type: None Review of Systems - Review of Systems Able to Perform ROS?: Yes Comments:: 12 point review of systems is negative except for what is noted in the history of present illness *Physical Exam - Vital Signs Last Vital Signs Temp Pulse Resp BP Pulse Ox 98.6 F 80 18 112/71 99 01/31/18 21:42 01/31/18 21:42 01/31/18 21:42 01/31/18 21:42 01/31/18 21:42 - Physical Exam Comments: GENERAL: Adult female, alert and oriented 3, in no acute distress HEAD: Normal with no signs of trauma. EYES: PERRLA, EOMI, sclera anicteric, conjunctiva clear. ENT: Mild tenderness to palpation of bilateral frontal and ethmoid sinuses; Ears normal, nares patent, oropharynx clear without exudates. Moist mucous membranes. NECK: Normal range of motion, supple without lymphadenopathy, JVD, or masses. LUNGS: Breath sounds equal, clear to auscultation bilaterally. No wheezes, and no crackles. HEART:Regular rate and rhythm, normal S1 and S2 without murmur, rub or gallop. ABDOMEN:.normal bowel sounds No guarding,tenderness or rebound.No masses No distention. EXTREMITIES: Normal range of motion, no edema. No clubbing or cyanosis. No erythema, or tenderness. NEUROLOGICAL: Cranial nerves II through XII grossly intact. Normal speech. No focal neurological deficits. MUSCULOSKELETAL: Back non-tender to palpation, no CVA tenderness SKIN: Warm, Dry, normal turgor, no rashes or lesions noted. Medical Decision Making - Medical Decision Making With patient's mild generalized headache and lightheadedness,( especially since this occurred after sneezing this morning) along with her mild tenderness to palpation of the ethmoid and frontal sinus areas, clinical presentation most consistent with sinusitis, possibly ALLERGIC or viral etiology. This patient does not have fever or purulent nasal discharge, antibiotics will not be started at this time. Patient has been advised to continue an antihistamine such as Claritin as previously. Also, Singulair 10 mg at night daily will be prescribed. Patient should return or see her doctor if she develops fever or purulent nasal discharge; she should also return if she has severe, persistent headache *DC/Admit/Observation/Transfer Diagnosis at time of Disposition: Sinusitis Qualifiers: Sinusitis location: unspecified location Chronicity: subacute Qualified Code(s) : J01.90 - Acute sinusitis, unspecified - Discharge Dispostion Disposition: HOME Condition at time of disposition: Stable - Prescriptions Prescriptions: Montelukast Sodium [Singulair] 10 mg PO DAILY #20 tablet - Referrals - Patient Instructions Printed Discharge Instructions: Sinusitis Additional Instructions: Continue Claritin or other [id number] antihistamine as directed Begin Singulair 10 mg daily (at night) Consider using vaporizer to introduce moisture in room air at night Return or see your doctor if you develop fever, persistent headache or purulent nasal drainage - Post Discharge Activity
== END 2018-01-31 22:50 | disposition home or self-care (01) ==
LOC: FER 21:38
DX: J01.90 Acute sinusitis, unspecified (principal); I10 Essential (primary) hypertension; I25.10 Atherosclerotic heart disease of native coronary artery without angina pectoris; J30.2 Other seasonal allergic rhinitis
CPT/HCPCS: 99281-25

== ENCOUNTER 2019-03-22 20:13 | Emergency (ER) | payer OTHER ==
[2019-03-22 20:21] VITALS: BP 113/65; PULSE 84; TEMP 98.6; BMI 33.3
[2019-03-22] MEDS ORDERED: CYCLOBENZAPRINE HCL 10 MG TABLET (FP) PO ONE (20:46)
[2019-03-22] MEDS ORDERED: CYCLOBENZAPRINE HCL 10 MG TABLET (FP) ONE (20:48)
--- NOTE | 2019-03-22 20:57 | PDOC ---
Documentation entered by Angella Higgins SCRIBE, acting as scribe for Jan Estrada MD. Jan Estrada MD: This documentation has been prepared by the [facility]onal[facility] Aiswarya, SCRIBE, under my direction and personally reviewed by me in its entirety. I confirm that the documentation accurately reflects all work, treatment, procedures, and medical decision making performed by me. History of Present Illness - General Chief Complaint: Pain, Acute Stated Complaint: RT MASTOID PAIN History Source: Patient Exam Limitations: No Limitations - History of Present Illness Initial Comments: 03/22/19 20:47 This is a 53-year-old female who comes in complaining of the pain and discomfort on range of motion of her neck. Patient is complaining of pain in the right lateral posterior neck muscles and posterior occipital area. Pain is worse with movement of the neck. Patient denies any fevers or chills. Patient denies any injury or trauma to the neck. Patient given Flexeril and was not given an anti-inflammatory as she has been taking anti-inflammatories. Prescription for Flexeril was sent to her pharmacy patient discharged to follow- up with her primary care doctor next week if not improved. 03/22/19 20:58 The patient is a 53 year old female, with no significant PMH, who presents to the emergency department with neck pain that began 3 weeks ago. The patient states sudden onset of pain began while she was sitting at work and progressively worsened today. She states pain is located to the right posterior neck muscles and notes shooting pain with movement, no relief with ibuprofen and Tylenol. Patient states pain is exacerbated with neck movement and palpation. The patient denies any head injury, falls or trauma. Denies any numbness or tingling. Denies any other neurological deficit. Denies chest pain , shortness of breath, headache and dizziness. PAST MEDICAL HISTORY: no significant history PAST SURGICAL HISTORY: no significant history FAMILY HISTORY: no pertinent history SOCIAL HISTORY: Pt lives with family and is employed. MEDICATIONS: reviewed ALLERGIES: As per nursing notes Adult ROS General: No fevers or chills, no weakness, no weight loss HEENT: +Neck pain. No change in vision. No sore throat,. No ear pain CardioVascular: No chest pain or shortness of breath Respiratory:No cough, or wheezing. Gastrointestinal: no nausea, vomiting, diarrhea or constipation, No rectal bleeding Genitourinary: No dysuria, hematuria, or frequency Musculoskeletal: No joint or muscle pain or swelling Neurologic: No headache, vertigo, dizziness or loss of consciousness Psychiatric: nor depression Skin: No rashes or easy bruising Endocrine: no increased thirst or abnormal weight change Allergic: no skin or latex allergy All other systems reviewed and normal Basic PE GENERAL: The patient is awake, alert, and fully oriented, in no acute distress. HEAD: Normal with no signs of trauma. EYES: Pupils equal, round and reactive to light, extraocular movements intact, sclera anicteric, conjunctiva clear. EXTREMITIES:+Tenderness and spasm to the right posterior neck muscle. No cervical spine tenderness . Decreased range of motion of the neck secondary to muscle spasm . No meningeal sign NEUROLOGICAL: Normal speech, normal gait. PSYCH: Normal mood, normal affect. SKIN: Warm, Dry, normal turgor, no rashes or lesions noted. Past History - Past Medical History Allergies/Adverse Reactions: Allergies Allergy/AdvReac Type Severity Reaction Status Date / Time No Known Allergies Allergy Verified 01/31/18 21:40 Home Medications: Ambulatory Orders Cyclobenzaprine HCl [Flexeril 10 mg] 10 mg PO BID #20 tablet 03/22/19 Ibuprofen 400 mg PO ONCE 03/22/19 Cardiac Disorders: Yes (cardiac cath 4mnths ago,no need for stents) COPD: No HTN: Yes - Suicide/Smoking/Psychosocial Hx Smoking History: Never smoked Have you smoked in the past 12 months: No Number of Cigarettes Smoked Daily: 0 Cigars Per Day: 0 Hx Alcohol Use: No Drug/Substance Use Hx: No Substance Use Type: None *Physical Exam - Vital Signs Last Vital Signs Temp Pulse Resp BP Pulse Ox 98.6 F 84 16 113/65 97 03/22/19 20:17 03/22/19 20:17 03/22/19 20:17 03/22/19 20:17 03/22/19 20:17 *DC/Admit/Observation/Transfer Diagnosis at time of Disposition: Torticollis, acute - Discharge Dispostion Disposition: HOME Condition at time of disposition: Stable Decision to Admit order: No - Prescriptions Prescriptions: Cyclobenzaprine HCl [Flexeril 10 mg] 10 mg PO BID #20 tablet - Referrals - Patient Instructions Additional Instructions: Continue to take ibuprofen 3 tablets 3 times a day with food don't take on an empty stomach. In addition to the ibuprofen take a muscle relaxant Flexeril 1 tablet as often as twice a day. The muscle relaxant will make you drowsy so you may need to limited to the nighttime hours if you have to work drive or do anything that requires her concentration. Return to the emergency department immediately with ANY new, persistent or worsening symptoms. Continue any medications as previously prescribed by your physician. You should follow up with your primary doctor as soon as possible regarding today's emergency department visit. . Please make sure your doctor reviews the results of your emergency evaluation. Thank you for coming to the Emergency Department today for your care. It was a pleasure to see you today. Please note that your evaluation is INCOMPLETE until you follow-up with your doctor. - Post Discharge Activity
== END 2019-03-22 21:03 | disposition home or self-care (01) ==
LOC: FER 20:13
DX: M43.6 Torticollis (principal); I10 Essential (primary) hypertension
CPT/HCPCS: 99281-25

== ENCOUNTER 2020-02-12 12:44 | Emergency (ER) | payer SELFPAY ==
[2020-02-12 12:59] VITALS: BP 128/81; PULSE 80; TEMP 98.2; BMI 32.2
--- NOTE | 2020-02-12 13:09 | PDOC ---
History of Present Illness - General Chief Complaint: Urinary Problem Stated Complaint: URINARY RETENTION/PAIN Time Seen by Provider: 02/12/20 12:46 History Source: Patient Exam Limitations: No Limitations - History of Present Illness Initial Comments: Marry is a 54 yo Obese F w a pmh of HTN, CAD, and seasonal allergies who presents to the [facility] ER with 1 day of dysuria, frequency, urgency, hesitancy, and suprapubic abdominal pain concerned that she has a UTI. She states today she started becoming mildly nauseous and has mild lower back pain as well. Denies hx of UTI in past. Denies fevers, chills, vomiting, headache, neck pain, chest pain, SOB, difficulty breathing, diarrhea or constipation. PCP: None - comes here for mild injuries, goes to [facility] for other care PSH: None reported Allergies: NKA, NKDA Social Hx: Denies smoking, drinking, or other substance abuse Past History - Medical History Allergies/Adverse Reactions: Allergies Allergy/AdvReac Type Severity Reaction Status Date / Time No Known Allergies Allergy Verified 02/12/20 12:49 Home Medications: Ambulatory Orders Sulfamethoxazole/Trimethoprim [Bactrim Ds -] 1 tab PO BID #14 tablet 02/12/20 Cardiac Disorders: Yes (cardiac cath 4mnths ago,no need for stents) COPD: No HTN: Yes - Psycho-Social/Smoking History Smoking History: Never smoked Have you smoked in the past 12 months: No Number of Cigarettes Smoked Daily: 0 Cigars Per Day: 0 Information on smoking cessation initiated: No - Substance Abuse Hx (Audit-C & DAST Scrn) How often the patient has a drink containing alcohol: Never Score: In Men: 4 or > Positive; In Women: 3 or > Positive: 0 Screen Result (Pos requires Nsg. Audit-10AR): Negative In the last yr the pt used illegal drug/Rx for NonMed reason: No Score: Yes response is considered Positive: 0 Screen Result (Positive result requires Nsg. DAST-10): Negative Review of Systems - Review of Systems Able to Perform ROS?: Yes Comments:: CONSTITUTIONAL: Absent: fever, no chills, no fatigue EYES: Absent: visual changes ENT: Absent: ear pain, no sore throat CARDIOVASCULAR: Absent: chest pain, no palpitations RESPIRATORY: Absent: cough, no SOB GI: Present: Nausea, suprapubic abdominal discomfort Absent: no vomiting, no constipation, no diarrhea GENITOURINARY: Present: dysuria, frequency, urgency, hematuria MUSKULOSKELETAL: Present: back pain Absent: no arthralgia, no myalgia SKIN: Absent: rash NEURO: Absent: headache *Physical Exam - Vital Signs Last Vital Signs Temp Pulse Resp BP Pulse Ox 98.2 F 80 20 128/81 99 02/12/20 12:45 02/12/20 12:45 02/12/20 12:45 02/12/20 12:45 02/12/20 12:45 - Physical Exam GENERAL: Well-appearing, well-nourished. No apparent distress. HEENT: Normocephalic, atraumatic. PERRL, EOM intact. CARDIOVASCULAR: Normal S1, S2. Regular rate and rhythm. PULMONARY: No evidence of respiratory distress. Lungs clear to auscultation bilaterally. No wheezing, rales or rhonchi. ABDOMEN: Mild suprapubic discomfort. Soft, non-distended. Normal bowel sounds. EXTREMITIES: No CVA Tenderness. Normal ROM in all four extremities. No gross deformities. SKIN: Warm, dry. No rash NEUROLOGICAL: No focal neurological deficits. Medical Decision Making - Medical Decision Making Marry is a 54 yo Obese F w a pmh of HTN, CAD, and seasonal allergies who presents to the [facility] ER with 1 day of dysuria, frequency, urgency, hesitancy, and suprapubic abdominal pain concerned that she has a UTI. She states today she started becoming mildly nauseous and has mild lower back pain as well. Denies hx of UTI in past. Vital Signs Temp Pulse Resp BP Pulse Ox 98.2 F 80 20 128/81 99 02/12/20 12:45 02/12/20 12:45 02/12/20 12:45 02/12/20 12:45 02/12/20 12:45 DDx IBNLT: UTI, hemorrhagic cystitis, less likely pylo vs renal colic, iup vs ectopic Plan: ua, uc, hcg, likely treat with Abx, re-assess Ua: Suggestive of UTI. No prior cultures. - Will treat with bactrim Bedside POCUS: Bladder: Not distended, no evidence of urinary retention, wall appears thickened consistent with UTI. Kidneys: There is no hydro bilaterally Re-assessment: Patient feeling well and requesting to be discharged from the ER. The patient appears clinically sober, is A&O x4, and appears to be capable and have capacity to make reasonable decisions. The patient states they are currently in the emergency department, knows who the president is, states the correct time, correct day, and correct month. The patient is ambulatory in ER and has walked around the nursing station multiple times with a straight gait, and is not ataxic. Tolerating PO well, ate a sandwich and drank juice. Denies having any SI or HI. Patient states will not be driving home. I discussed the physical exam findings, ancillary test results and final diagnoses with the patient. I answered all of the patient's questions. The patient was satisfied with the care received and felt comfortable with the discharge plan and treatment plan. The patient will call their primary care ph ysician within 24 hours to arrange follow-up and will return to the Emergency Department with any new, persistent or worsening symptoms. Disposition: Home with Abx, and PCP fu Please note, this clinical encounter is taking place during a federal and state health care emergency attributable to the novel [place]urto Virus pandemic. The [place] of the Department of Health and Human Services has declared, pursuant to the Public Health Service Act 319F-3 (42 U.S.C. 247d-6d), that a covered persons activities related to medical countermeasures against COVID-19 will be immune from liability under Federal and State law. Discharge - Discharge Information Problems reviewed: Yes Clinical Impression/Diagnosis: UTI (urinary tract infection) Qualifiers: Urinary tract infection type: site unspecified Hematuria presence: without hematuria Qualified Code(s): N39.0 - Urinary tract infection, site not specified Condition: Stable Disposition: HOME - Admission No - Additional Discharge Information Prescriptions: Sulfamethoxazole/Trimethoprim [Bactrim Ds -] 1 tab PO BID #14 tablet - Follow up/Referral Referrals: [facility] [place] [facility] [Provider Group] - Patient Discharge Instructions Patient Printed Discharge Instructions: DI for Urinary Tract Infection (UTI) Additional Instructions: You came into the ER with burning when you urinate. We looked at your urine and found that you have a urinary tract infection. We are giving you antibiotics to take for the next week. Please make sure to go and warp picker the antibiotic prescription and take the whole course of antibiotics even if you feel better. You must return to the Emergency Department with any new complaints, if your symptoms persist and do not improve or if you develop any other new or worsening concerns. As discussed, please call to follow up with the Primary Care physician we are referring you to in 1-2 days to discuss what happened to you in the emergency room, and make sure you are being looked after and taken care of. Your emergency room visit is not complete without this follow up appointment. Please read the attached handouts for further information about your ER visit and what you should do moving forward. Thank you for coming to the [facility] ER. We hope you feel better soon! Print Language: PASHTO - Post Discharge Activity
[2020-02-12 13:21] LABS: HCG,QUALITATIVE URINE Negative
[2020-02-12 13:26] LABS: EPITHELIAL CELLS MODERATE /hpf
--- NOTE | 2020-02-12 13:55 | PDOC ---
Attending Attestation - Resident Resident Name: Ghassan Altman - ED Attending Attestation I have performed the following: I have examined & evaluated the patient, The case was reviewed & discussed with the resident, I agree w/resident's findings & plan - HPI HPI: 02/12/20 13:52 Healthy 54-year-old female presents with 1 day of urinary urgency, frequency, and sensation of incomplete emptying. Lower abdominal fullness, no flank pain or fevers or chills. Nausea but no vomiting, no history of recurring UTI. Denies any FISH FRYER complaints. - Physicial Exam PE: 02/12/20 13:53 Afebrile, vital signs stable Well-appearing seated comfortably in stretcher No CVA tenderness Suprapubic discomfort to palpation without guarding or rebound, no palpably enlarged or distended bladder. - Medical Decision Making 02/12/20 13:53 54-year-old female with symptoms consistent with UTI for 1 day, no evidence of sirs or sepsis, no CVA tenderness or pain to suggest pyelonephritis. Urinalysis consistent with UTI POCUS r/o retention and no hydronephrosis d/c with abx, culture sent, understands return criteria Discharge - Discharge Information Problems reviewed: Yes Clinical Impression/Diagnosis: UTI (urinary tract infection) Qualifiers: Urinary tract infection type: site unspecified Hematuria presence: without hematuria Qualified Code(s): N39.0 - Urinary tract infection, site not specified Condition: Stable Disposition: HOME - Follow up/Referral - Patient Discharge Instructions Patient Printed Discharge Instructions: DI for Urinary Tract Infection (UTI) - Post Discharge Activity
[2020-02-12] MEDS ORDERED: SULFAMETHOXAZOLE/TRIMETHOPRIM 800MG/160MG D.S. TABLET PO ONE (14:11)
[2020-02-12] MEDS ORDERED: SULFAMETHOXAZOLE/TRIMETHOPRIM 800MG/160MG D.S. TABLET ONE (14:34)
== END 2020-02-12 14:39 | disposition home or self-care (01) ==
LOC: FER 12:44
DX: N39.0 Urinary tract infection, site not specified (principal)
CPT/HCPCS: 81003; 81015; 84703; 87086; 87186; 99284-25